=== PATIENT | male | born 1945 | race Caucasian/White ===

== ENCOUNTER 2022-02-25 10:00 | Outpatient (CLI) | payer MEDICARE, OTHER, SELFPAY | END 2022-02-25 10:01 | disposition home or self-care (01) | LOC: SLEEP 02-27 09:51 | PROVIDERS: Family Provider Family Medicine; PCP Nurse Practitioner Family; Visit Provider Physician Assistant Medical | DX: G47.33 Obstructive sleep apnea (adult) (pediatric) (principal); Z78.9 Other specified health status | CPT/HCPCS: G0399 ==

== ENCOUNTER 2022-03-24 20:00 | Outpatient (CLI) | payer MEDICARE, OTHER, SELFPAY | END 2022-03-24 20:01 | disposition home or self-care (01) | LOC: SLEEP 03-25 05:17 | PROVIDERS: Family Provider Family Medicine; PCP Nurse Practitioner Family; Visit Provider Physician Assistant Medical | DX: G47.33 Obstructive sleep apnea (adult) (pediatric) (principal); Z78.9 Other specified health status | CPT/HCPCS: 95810 ==

== ENCOUNTER → 2023-05-04 14:19 | Outpatient (BNVA) | payer MEDICARE, OTHER, SELFPAY | PROVIDERS: Family Provider Family Medicine; PCP Nurse Practitioner Family; Visit Provider Dermatology | DX: L56.5 Disseminated superficial actinic porokeratosis (DSAP) (principal); L28.1 Prurigo nodularis; L82.1 Other seborrheic keratosis; L57.0 Actinic keratosis; L57.8 Other skin changes due to chronic exposure to nonionizing radiation | CPT/HCPCS: 17000; 99214 ==

== ENCOUNTER 2023-07-22 22:02 | Inpatient (IN) | payer MEDICARE, OTHER, SELFPAY ==
[2023-07-22 22:04] VITALS: BP 112/65; PULSE 88; RESP 18; TEMP 36.4; O2SAT 92
--- NOTE | 2023-07-22 22:11 | USR_ITS ---
PROCEDURE INFORMATION: Exam: US Duplex Left Lower Extremity Veins, Limited Exam date and time: 07/22/2023 10:37 PM Age: 77 years old Clinical indication: Edema, localized; Lower extremity, left; Prior surgery; Surgery date: 6+ months; Surgery type: Left total knee replacement in remote past. ; Additional info: Erythema/swelling TECHNIQUE: Imaging protocol: Real-time duplex ultrasound of the left extremity with 2-D [place] scale, color Doppler flow and spectral waveform analysis including responses to compression and other maneuvers (when performed) with image documentation. Limited exam focused on the left lower extremity veins. COMPARISON: CR (LOW EXM, ) 07/22/2023 10:25 PM FINDINGS: Left deep veins: Unremarkable. The common femoral, femoral, proximal profunda femoral and popliteal veins are patent without thrombus. Normal Doppler waveforms. Normal compressibility and/or augmentation response. Superficial veins: Unremarkable. Saphenofemoral junction is patent without thrombus. Soft tissues: Unremarkable. US/CV venous duplex [facility] [id number] IMPRESSION: No evidence of deep vein thrombosis in the left lower extremity.
--- NOTE | 2023-07-22 22:11 | XRR_ITS ---
PROCEDURE INFORMATION: Exam: XR Chest Exam date and time: 07/22/2023 10:25 PM Age: 77 years old Clinical indication: Cough TECHNIQUE: Imaging protocol: Radiologic exam of the chest. Views: 1 view. COMPARISON: No relevant prior studies available. FINDINGS: Lungs: Unremarkable. No consolidation. Pleural spaces: Unremarkable. No pleural effusion. No pneumothorax. Heart/Mediastinum: Unremarkable. No cardiomegaly. Bones/joints: Unremarkable. XR/XR chest 1V portable [id number] IMPRESSION: No acute findings.
--- NOTE | 2023-07-22 22:18 | W.ED.EXTPRO ---
HPI - Extremity Problem General: Chief complaint: Extremity Problem,Nontraumatic Stated complaint: pain in leg Time Seen by Provider: 07/22/23 22:11 History of Present Illness: 77-year-old male presents emergency department via EMS personnel. He states that approximately 1400 today started having significant left knee pain and swelling. He states the left lower extremity has continued to become more red and swollen throughout the day. He states he has had cellulitis in the past he does have history of having a knee replacement x 3 to the left knee. He currently rates his pain as a throbbing aching type pain that is a 7 out of 10. He is able to stand and pivot but states his pain in his knee becomes much worse. He denies fevers chills or night sweats. He denies numbness or tingling to the extremity. Review of Systems General: Reports: 10 or more systems reviewed and unremarkable except in HPI and below Musc: Reports: extremity pain, extremity swelling and joint pain Skin/Breast: Reports: erythema [facility] PFSH: Medical History Hyperlipidemia Hypertension Social History Smoking and tobacco/nicotine status: former use of tobacco/nicotine Physical Exam Narrative: EXAM NARRATIVE: Constitutional: the patient appears well nourished and of normal development. Vital signs as documented. No acute distress at present. Alert and oriented-to person, place, time and situation. Head, eyes, ears, nose, mouth, throat: Normocephalic, atraumatic. Pupils-equal, round, reactive to light. No scleral icterus. Normal-appearing external ears. Normal appearing nasal turbinates, no drainage. No obvious oral lesions, posterior oropharynx without erythema or exudates. Neck: Supple, trachea is midline, no lymphadenopathy, no jugular venous distension, thyromegaly, or carotid bruits. Carotid upstrokes are brisk bilaterally. Lungs: clear to auscultation to all lung watts. Symmetrical rise and fall of chest, no obvious signs of increased work of breathing at present. Cardiac: Regular rate and rhythm, positive S1, S2. No murmurs, rubs or gallops that I can appreciate Abdomen: Soft, non-tender to palpation, normal active bowel sounds to all quadrants. No palpable masses, no organomegaly and abdominal bruits. Extremities: 2+ pulses in the upper extremities that are equal bilaterally, 2+ pulses in the lower extremities that are equal bilaterally. 1+ nonpitting edema to the left lower leg. The left knee is moderately swollen and tender to palpation to the medial lateral aspect.. Moves all extremities well, sensation to all extremities are noted. Skin: Warm, dry, intact. Erythema to the entire left lower leg Course Vital Signs: Vital signs: Vital Signs Temperature 97.9 F 07/23/23 02:29 Pulse Rate 57 L 07/23/23 02:29 Respiratory Rate 20 H 07/23/23 02:29 Blood Pressure 139/67 07/23/23 02:29 Pulse Oximetry 94 07/23/23 02:29 Oxygen Delivery Me thod Room Air 07/23/23 02:29 MDM - Extremity (Nontraumatic) Medical Decision Making Physical exam completed and documented, I will obtain CBC CMP ESR and CRP as well as a chest x-ray and blood cultures to evaluate this patient. He states he is also had a significant cough so we will obtain influenza and COVID screening. I will obtain a radiographic examination as well as an ultrasound of the left lower extremity. Medical Records I reviewed the patient's medical records. Lab Data I reviewed the patient's lab results. 07/22/23 23:10 07/22/23 23:40 Radiology Impressions Chest X-Ray 07/22/23 22:11 IMPRESSION: No acute findings. Venous Duplex 07/22/23 22:11 IMPRESSION: No evidence of deep vein thrombosis in the left lower extremity. Knee X-Ray 07/22/23 22:22 IMPRESSION: 1. Semi constrained total left knee arthroplasty without evidence of hardware failure or loosening. 2. Trace joint effusion. 3. No acute fracture. Laboratory Results WBC 19.93 10^3/uL (3.29-11.43) H 07/22/23 23:10 RBC 4.07 10^6/uL (3.85-5.65) 07/22/23 23:10 Hgb 13.10 g/dL (11.27-16.99) 07/22/23 23:10 Hct 39.5 % (37-53) 07/22/23 23:10 MCV 97.1 fl (82-101) 07/22/23 23:10 MCH 32.2 pg (27-33) 07/22/23 23:10 MCHC 33.2 g/dL (30-55) 07/22/23 23:10 RDW 14.5 % (12.1-15.1) 07/22/23 23:10 Plt Count 187 10^3/cmm (157-399) 07/22/23 23:10 MPV 12.4 fL (7.4-10.4) H 07/22/23 23:10 Neut % (Auto) 85.5 % 07/22/23 23:10 Lymph % (Auto) 4.5 % 07/22/23 23:10 [place] % (Auto) 4.0 % 07/22/23 23:10 Eos % (Auto) 0.0 % 07/22/23 23:10 Baso % (Auto) 0.3 % 07/22/23 23:10 Neut # (Auto) 17.06 10^3/uL (1.8-7.7) H 07/22/23 23:10 Lymph # (Auto) 0.9 10^3/uL (0.8-4.8) 07/22/23 23:10 [place] # (Auto) 0.8 10^3/uL (0.2-0.9) 07/22/23 23:10 Eos # (Auto) 0.0 10^3/uL (0.0-0.8) 07/22/23 23:10 Baso # (Auto) 0.1 10^3/uL (0.0-0.1) 07/22/23 23:10 Nucleated RBC % (auto) 0 % 07/22/23 23:10 Nucleated RBCs # 0.0 /100WBC 07/22/23 23:10 ESR 68 mm/hr (0-10) H 07/22/23 23:10 Sodium 133 mmol/L (136-145) L 07/22/23 23:40 Potassium 3.8 mmol/L (3.5-5.1) 07/22/23 23:40 Chloride 102 mmol/L (98-107) 07/22/23 23:40 Carbon Dioxide 21 mmol/L (22-29) L 07/22/23 23:40 Anion Gap 13.8 (5-19) 07/22/23 23:40 BUN 33 mg/dL (8-23) H 07/22/23 23:40 Creatinine 1.6 mg/dL (0.7-1.2) H 07/22/23 23:40 GFR Calculation Not Reportable 07/22/23 23:40 Glucose 164 mg/dL (65-115) H 07/22/23 23:40 Estimat Average Glucose 120 07/22/23 23:10 Hemoglobin A1c 5.8 % (4.0-6.0) 07/22/23 23:10 Calculated Osmolality 287 mOsm/kg (285-295) 07/22/23 23:40 Lactic Acid 1.5 mmol/L (0.5-2.2) 07/22/23 23:40 Calcium 8.6 mg/dL (8.5-10.5) 07/22/23 23:40 Total Bilirubin 1.2 mg/dL (0.15-1.2) 07/22/23 23:40 AST 110 U/L (0-40) H 07/22/23 23:40 ALT 105 U/L (0-41) H 07/22/23 23:40 Alkaline Phosphatase 293 U/L (40-130) H 07/22/23 23:40 C-Reactive Protein 168.5 mg/L (0.0-4.9) H 07/22/23 23:40 Total Protein 6.1 g/dL (6.6-8.7) L 07/22/23 23:40 Albumin 2.5 g/dL (3.5-5.2) L 07/22/23 23:40 Globulin 3.6 g/dL (1.3-4.6) 07/22/23 23:40 Procalcitonin 1.04 ng/mL (0-0.5) H 07/22/23 23:40 Influenza Type A Ag negative (Negative) 07/22/23 22:45 Influenza Type B Ag negative (Negative) 07/22/23 22:45 SARS-CoV-2 Ag (Rapid) negative (Negative) 07/22/23 22:45 All radiology interpretation(s) finalized by discharge Discharge Plan Discharge Patient Disposition: Admitted As Inpatient Admit Provider: Gillian Dangelo Clinical Impression: Cellulitis of left leg, Elevated liver transaminase level Condition: Stable Coding Level of Care Code 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
--- NOTE | 2023-07-22 22:22 | XRR_ITS ---
PROCEDURE INFORMATION: Exam: XR Left Knee Exam date and time: 07/22/2023 10:25 PM Age: 77 years old Clinical indication: Pain; Knee; Left; Additional info: Pain and swelling TECHNIQUE: Imaging protocol: Radiologic exam of the left knee. Views: 3 views. COMPARISON: No relevant prior studies available. FINDINGS: Bones/joints: Semi constrained total left knee arthroplasty without evidence of hardware failure or loosening. Trace joint effusion. No acute fracture. Soft tissues: Normal. XR/XR knee LT 3V* [id number] IMPRESSION: 1. Semi constrained total left knee arthroplasty without evidence of hardware failure or loosening. 2. Trace joint effusion. 3. No acute fracture.
[2023-07-22 23:15] LABS: SARS Covid-2 Antigen negative (Negative)
[2023-07-22 23:16] LABS: Influenza A by IFA negative (Negative); Influenza B by IFA negative (Negative)
[2023-07-22 23:45] LABS: Erythrocyte Sedimentation Rate 68 mm/hr (0-10)
[2023-07-23] VITALS (11 sets, daily range): BP systolic 101–149; BP diastolic 46–72; PULSE 52–70; RESP 16–20; TEMP 36.6–37.1; O2SAT 91–97; BMI 37.7
[2023-07-23 00:01] LABS: Basophils # 0.1 10^3/uL (0.0-0.1); Basophils % 0.3 %; Hematocrit 39.5 % (37-53); Lymphocytes # 0.9 10^3/uL (0.8-4.8); Lymphocytes % 4.5 %; Mean Corpuscular HGB Conc 33.2 g/dL (30-55); Mean Corpuscular Hemoglobin 32.2 pg (27-33); Mean Corpuscular Volume 97.1 fl (82-101); Mean Platelet Volume 12.4 fL (7.4-10.4); Monocytes # 0.8 10^3/uL (0.2-0.9); Neutrophils # 17.06 10^3/uL (1.8-7.7); Neutrophils % 85.5 %; Nucleated Red Blood Cells % 0 %; Platelet Count 187 10^3/cmm (157-399); Red Blood Count 4.07 10^6/uL (3.85-5.65); Red Cell Distribution Width 14.5 % (12.1-15.1); White Blood Count 19.93 10^3/uL (3.29-11.43)
[2023-07-23 00:04] LABS: Alanine Aminotransferase 105 U/L (0-41); Albumin Level 2.5 g/dL (3.5-5.2); Alkaline Phosphatase 293 U/L (40-130); Anion Gap 13.8 (5-19); Aspartate Amino Transferase 110 U/L (0-40); Blood Urea Nitrogen 33 mg/dL (8-23); C Reactive Protein 168.5 mg/L (0.0-4.9); Calcium 8.6 mg/dL (8.5-10.5); Carbon Dioxide 21 mmol/L (22-29); Chloride 102 mmol/L (98-107); Globulin 3.6 g/dL (1.3-4.6); Glucose 164 mg/dL (65-115); Lactic Sepsis W/Reflex 1.5 mmol/L (0.5-2.2); Osmolality Calculated 287 mOsm/kg (285-295); Potassium 3.8 mmol/L (3.5-5.1); Sodium 133 mmol/L (136-145); Total Bilirubin 1.2 mg/dL (0.15-1.2); Total Protein 6.1 g/dL (6.6-8.7)
[2023-07-23 00:11] LABS: Procalcitonin 1.04 ng/mL (0-0.5)
[2023-07-23] MEDS: clindamycin 600 MG/50 ML PREMIX 100 MG IV (00:38)
[2023-07-23 01:44] LABS: Estmated Average Glucose 120; Hemoglobin A1C 5.8 % (4.0-6.0)
[2023-07-23] MEDS: cefTRIAXone 1,000 MG in sodium chloride 0.9% (plus) 50 ML 100 MG IV (01:57)
--- NOTE | 2023-07-23 02:11 | PC.NURSE ---
REPORT CALLED TO DORIS THOMPSON ON MS. ALL QUESTIONS AND CONCERNS ADDRESSED AT TIME OF REPORT.
[2023-07-23] MEDS: vancomycin 2,000 MG/400 ML PIGGYBACK 200 MG IV (02:39)
--- NOTE | 2023-07-23 02:45 | PC.NURSE ---
Patient arrived to floor at 0230 and was transferred over to [facility] bed. Patient was oriented to room and call light.
--- NOTE | 2023-07-23 05:37 | XRR_ITS ---
PROCEDURE INFORMATION: Exam: XR Chest Exam date and time: 07/23/2023 5:51 AM Age: 77 years old Clinical indication: Other: Evaluate for pneumonia TECHNIQUE: Imaging protocol: Radiologic exam of the chest. Views: 1 view. COMPARISON: CR (CHEST, ) 07/22/2023 10:25 PM FINDINGS: Lungs: Unremarkable. No consolidation. Pleural spaces: Unremarkable. No pleural effusion. No pneumothorax. Heart/Mediastinum: Unremarkable. No cardiomegaly. Bones/joints: Unremarkable. XR/XR chest 1V portable [id number] IMPRESSION: No acute findings.
--- NOTE | 2023-07-23 05:40 | PM.HP ---
Providers/Chief Complaint Admitting Physician: Gillian Dangelo MD Primary Care Provider: AYSHA Rodriguez Chief Complaint: pain in leg History of Present Illness Balta Forrest is a 77 year old male with a past medical history of dyslipidemia who presented to the hospital today with 1 day of left leg swelling erythema warmth and tenderness. Patient states he has been feeling poorly for the past week with URI type symptoms and a mild cough. He has Been fatigued and spent most of the time in bed. Yesterday he started to notice cominghis left leg developing cellulitis. Patient has a past medical history of recurrent episodes of cellulitis. He estimates he has had 6-7 episodes of cellulitis in his lifetime only involving the left leg. He has had previous surgeries on this leg by way of multiple arthroscopies and left total knee replacement which needed to be revised. Patient states that the revision was related to well-fitting hardware, he has never had known infected knee joint in the past. Prior to the current episode his last episode of cellulitis was 1-1/2 years ago. No reported trauma. No history of animal bites or scratches. Review of Systems General: Reports: 10 or more systems reviewed and unremarkable except in HPI and below Const: Denies: fever(s), chills or body aches Eyes: Denies: change in vision, blurry vision or photophobia ENMT: Reports: hoarseness; Denies: throat pain, enlarged tonsils, odynophagia or nasal congestion Card: Denies: chest pain, palpitations, irregular heart rhythm, edema, swelling of feet/ankles, lightheadedness, pre-syncope, dyspnea on exertion or orthopnea Resp: Denies: dyspnea, productive cough, non-productive cough, wheezing, stridor, pain on inspiration, change in phlegm color, hemoptysis or chest congestion GI: Denies: abdominal pain, nausea, vomiting, hematemesis, coffee ground emesis, dysphagia, heartburn, diarrhea, constipation, GI cramping, change in stool character, hematochezia or melena : Denies: flank pain, dysuria, urinary frequency, urinary urgency, urinary hesitancy or hematuria Musc: Denies: neck pain, back pain, extremity pain, joint swelling, joint warmth or deformity Neuro: Denies: headache(s), numbness in extremities, weakness in extremities, sensory changes, difficulty walking, frequent falls, dizziness, vertigo, behavioral changes, Slurred speech present or seizure-like activity Psych: Denies: anxiety, depression, suicidal ideation or homicidal ideation Endo: Denies: polyuria, polydipsia, tired all the time, cold intolerance or hot flashes Elder/Lymph: Denies: easy bruising or easy bleeding Medications/Allergies Home Medications Medication Instructions Recorded Confirmed Last Taken Type amlodipine 5 mg tablet tab PO 05/01/22 05/01/22 Unknown History betamethasone dipropionate 0.05 % g topical 05/01/22 05/01/22 Unknown History topical cream celecoxib 200 mg capsule cap PO 05/01/22 05/01/22 Unknown History cetirizine 10 mg tablet tab PO 05/01/22 05/01/22 Unknown History doxycycline hyclate 100 mg tablet tab PO 05/01/22 05/01/22 Unknown History gabapentin 300 mg capsule cap PO 05/01/22 05/01/22 Unknown History rosuvastatin 20 mg tablet tab PO 05/01/22 05/01/22 Unknown History imiquimod 5 % topical cream packet 1 applic topical ONCE #24 ea 05/09/22 05/09/22 Unknown Rx Allergies Allergy/AdvReac Type Severity Reaction Status Date / Time No Known Drug Allergies Allergy Unknown Verified 07/22/23 22:06 PFSH Acute PFSH: Medical History Hyperlipidemia Hypertension Social History Smoking and tobacco/nicotine status: former use of tobacco/nicotine Vitals/I&O/Wt Last Vital Signs Temp 98.4 F 07/23/23 04:00 Pulse 52 L 07/23/23 04:00 Resp 18 07/23/23 04:00 BP 121/63 07/23/23 04:00 Pulse Ox 92 07/23/23 04:00 O2 Del Method Room Air 07/23/23 04:00 07/22/23 07/22/23 07/23/23 14:59 22:59 06:59 Intake Total 500 / 500 Balance 500 / 500 Weight last 48 hrs Weight 131.117 kg Weight 126.155 kg Weight 127.006 kg Physical Exam Narrative: General: No acute distress, AO x3 HEENT: PERRLA, pupils bilaterally equal and reactive, pallors not present Chest: Normal vesicular breath sounds, no added sounds, equal good air entry bilaterally CVS: S1-S2 regular, no murmurs, no tachycardia, no gallops, no rubs Abdomen: Soft, nontender, no organomegaly, bowel sounds present Neuro: No focal deficits, no facial deformity, AO x3, power 5/5 in all limbs Extremities: LLE diffuse erythema, warmth and tenderness extending from thigh to ankle. Changes appear to be more prominent over the thigh. No gross joint swelling encountered at this present time. Range of motion is intact Data 07/22/23 23:10 07/22/23 23:40 Other Labs: Radiology Impressions Chest X-Ray 07/22/23 22:11 IMPRESSION: No acute findings. Venous Duplex 07/22/23 22:11 IMPRESSION: No evidence of deep vein thrombosis in the left lower extremity. Knee X-Ray 07/22/23 22:22 IMPRESSION: 1. Semi constrained total left knee arthroplasty without evidence of hardware failure or loosening. 2. Trace joint effusion. 3. No acute fracture. Laboratory Results WBC 19.93 10^3/uL (3.29-11.43) H 07/22/23 23:10 RBC 4.07 10^6/uL (3.85-5.65) 07/22/23 23:10 Hgb 13.10 g/dL (11.27-16.99) 07/22/23 23:10 Hct 39.5 % (37-53) 07/22/23 23:10 MCV 97.1 fl (82-101) 07/22/23 23:10 MCH 32.2 pg (27-33) 07/22/23 23:10 MCHC 33.2 g/dL (30-55) 07/22/23 23:10 RDW 14.5 % (12.1-15.1) 07/22/23 23:10 Plt Count 187 10^3/cmm (157-399) 07/22/23 23:10 MPV 12.4 fL (7.4-10.4) H 07/22/23 23:10 Neut % (Auto) 85.5 % 07/22/23 23:10 Lymph % (Auto) 4.5 % 07/22/23 23:10 [place] % (Auto) 4.0 % 07/22/23 23:10 Eos % (Auto) 0.0 % 07/22/23 23:10 Baso % (Auto) 0.3 % 07/22/23 23:10 Neut # (Auto) 17.06 10^3/uL (1.8-7.7) H 07/22/23 23:10 Lymph # (Auto) 0.9 10^3/uL (0.8-4.8) 07/22/23 23:10 [place] # (Auto) 0.8 10^3/uL (0.2-0.9) 07/22/23 23:10 Eos # (Auto) 0.0 10^3/uL (0.0-0.8) 07/22/23 23:10 Baso # (Auto) 0.1 10^3/uL (0.0-0.1) 07/22/23 23:10 Nucleated RBC % (auto) 0 % 07/22/23 23:10 Nucleated RBCs # 0.0 /100WBC 07/22/23 23:10 ESR 68 mm/hr (0-10) H 07/22/23 23:10 Sodium 133 mmol/L (136-145) L 07/22/23 23:40 Potassium 3.8 mmol/L (3.5-5.1) 07/22/23 23:40 Chloride 102 mmol/L (98-107) 07/22/23 23:40 Carbon Dioxide 21 mmol/L (22-29) L 07/22/23 23:40 Anion Gap 13.8 (5-19) 07/22/23 23:40 BUN 33 mg/dL (8-23) H 07/22/23 23:40 Creatinine 1.6 mg/dL (0.7-1.2) H 07/22/23 23:40 GFR Calculation Not Reportable 07/22/23 23:40 Glucose 164 mg/dL (65-115) H 07/22/23 23:40 Estimat Average Glucose 120 07/22/23 23:10 Hemoglobin A1c 5.8 % (4.0-6.0) 07/22/23 23:10 Calculated Osmolality 287 mOsm/kg (285-295) 07/22/23 23:40 Lactic Acid 1.5 mmol/L (0.5-2.2) 07/22/23 23:40 Calcium 8.6 mg/dL (8.5-10.5) 07/22/23 23:40 Total Bilirubin 1.2 mg/dL (0.15-1.2) 07/22/23 23:40 AST 110 U/L (0-40) H 07/22/23 23:40 ALT 105 U/L (0-41) H 07/22/23 23:40 Alkaline Phosphatase 293 U/L (40-130) H 07/22/23 23:40 C-Reactive Protein 168.5 mg/L (0.0-4.9) H 07/22/23 23:40 Total Protein 6.1 g/dL (6.6-8.7) L 07/22/23 23:40 Albumin 2.5 g/dL (3.5-5.2) L 07/22/23 23:40 Globulin 3.6 g/dL (1.3-4.6) 07/22/23 23:40 Procalcitonin 1.04 ng/mL (0-0.5) H 07/22/23 23:40 Influenza Type A Ag negative (Negative) 07/22/23 22:45 Influenza Type B Ag negative (Negative) 07/22/23 22:45 SARS-CoV-2 Ag (Rapid) negative (Negative) 07/22/23 22:45 A&P Assessment and plan (1) Cellulitis of left [age]-year-old male with a past medical history of recurrent episode of cellulitis presenting today with 1 day of swelling warmth erythema and tenderness of the left leg concerning for cellulitis. No clear precipitant or reported trauma to the leg. Start empiric antibiotic treatment with ceftriaxone 1 g IV every 24 hours and vancomycin IV with target trough of 10-15. Blood cultures taken prior to starting antibiotic's Closely monitor for improvement. Of note patient has an underlying TKA on the same leg. Currently the joint itself does not appear to be swollen or painful on exam. If no significant clinical improvement in the first 24 to 48 hours of starting antibiotic therapy, would potentially need to consider underlying joint infection additionally. For now suspicion appears to be low. Additionally reported URI symptoms over the past week. Patient has a cough with minimal expectoration and scattered wheezing. Add albuterol inhalation every 6 hours as needed Check COVID and influenza antigen Check chest x-ray Lower extremity Doppler negative for DVT DVT prophylaxis: Lovenox Full code Attestations Medical Necessity Statement*: Greater than 2 midnight admission is anticipated Coding Level of Care Code Acute Code for Chg Fwd Moderate MDM includes number and complexity of problems actively addressed during encounter, amount and/or complexity of data reviewed/ordered and described risk of complication, morbidity or mortality of management as documented Diagnoses Cellulitis of left leg L03.116
--- NOTE | 2023-07-23 07:16 | PC.PHAR ---
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 = 13.5 mcg/ml t1/2 17 hrs Hrs until 20 mcg/ml 8.0 hrs Hrs until 15 mcg/ml 15.3 hours Hrs until 10 mcg/ml 25.5 hours Dose Tau (Freq) Levels expected Standard 1999 24 Cmax 42.2 Targets 20.20 26.2 Cpeak 40.6 25 to 40 mg/kg hours Cmin 17.6 10 to 20
[2023-07-23 09:47] LABS: Basophils % 0.2 %; Hematocrit 37.3 % (37-53); Lymphocytes # 0.6 10^3/uL (0.8-4.8); Lymphocytes % 3.5 %; Mean Corpuscular HGB Conc 33.5 g/dL (30-55); Mean Corpuscular Hemoglobin 32.1 pg (27-33); Mean Corpuscular Volume 95.9 fl (82-101); Mean Platelet Volume 11.2 fL (7.4-10.4); Monocytes # 0.6 10^3/uL (0.2-0.9); Monocytes % 3.5 %; Neutrophils # 15.41 10^3/uL (1.8-7.7); Nucleated Red Blood Cells % 0 %; Platelet Count 157 10^3/cmm (157-399); Red Blood Count 3.89 10^6/uL (3.85-5.65); Red Cell Distribution Width 14.4 % (12.1-15.1)
[2023-07-23] MEDS: pantoprazole DR 40 mg Tablet PO (09:47)
[2023-07-23] MEDS: enoxaparin 40 mg/0.4 mL Syringe SUBCUT (09:47)
[2023-07-23] MEDS: HYDROcodone-acetaminophen 5-325 mg Tablet 1 TAB PO ×3 (09:47→23:41)
[2023-07-23] MEDS: sodium chloride 0.9% 1,000 ML 100 ML IV ×2 (09:48→20:13)
--- NOTE | 2023-07-23 09:55 | W.PM.EVENTAC ---
Event Note Event Note: Patient seen, history and physical reviewed. Laboratory ordered. Fluids initiated. Pain medication initiated for leg. Will continue to follow closely for improvement. Hold patient's anti-inflammatory secondary to acute kidney injury. Also has evidence of transaminitis. If does not improve, consider hepatitis panel.
[2023-07-23 10:00] LABS: Slide Review Slide Review Perform
[2023-07-23 10:05] LABS: Alanine Aminotransferase 102 U/L (0-41); Albumin Level 2.7 g/dL (3.5-5.2); Alkaline Phosphatase 276 U/L (40-130); Anion Gap 15.9 (5-19); Aspartate Amino Transferase 83 U/L (0-40); Blood Urea Nitrogen 30 mg/dL (8-23); Calcium 8.4 mg/dL (8.5-10.5); Carbon Dioxide 20 mmol/L (22-29); Chloride 100 mmol/L (98-107); Globulin 3.4 g/dL (1.3-4.6); Glucose 224 mg/dL (65-115); Osmolality Calculated 287 mOsm/kg (285-295); Potassium 3.9 mmol/L (3.5-5.1); Sodium 132 mmol/L (136-145); Total Bilirubin 1.8 mg/dL (0.15-1.2); Total Protein 6.1 g/dL (6.6-8.7)
--- NOTE | 2023-07-23 10:18 | USR_ITS ---
PROCEDURE INFORMATION: Exam: US Abdomen, Limited; Right Upper Quadrant Exam date and time: 07/23/2023 5:12 PM Age: 77 years old Clinical indication: Abnormal findings; Abnormal lab test; Abnormal function test of other organs/systems; Additional info: Elevated lft's, PT put on npo at 10:30 TECHNIQUE: Imaging protocol: Real time ultrasound of the abdomen with image documentation. Limited exam focused on the right upper quadrant. COMPARISON: No relevant prior studies available. FINDINGS: Liver: Unremarkable. Gallbladder: Cholelithiasis without gallbladder wall thickening or pericholecystic fluid. Negative sonographic Christianson's sign, as per the digital forensics investigator. Biliary ducts: Normal. No stones. No dilation. Pancreas: Suboptimally visualized. Right kidney: No mass. No definite stones. No hydronephrosis. US/US gall bladder [id number] IMPRESSION: Cholelithiasis without sonographic evidence of acute cholecystitis.
--- NOTE | 2023-07-23 10:30 | PC.CHAP ---
Pastoral Care Encounter/Spiritual Assessment Type of Contact [] Declined cheese packer visit [] Patient/Family/Request visit [] Outpatient visit [] Follow-up visit [] Physician referral [] Code/Alert [x] Routine visit [] Staff referral [] Actively dying [] Patient sleeping [] Family support [] [] Out of room [] Palliative care [] [x] Receiving care in room [] Pre-surgical visit [] Trauma [] Long length of stay [] ICU visit [] Other: Relational/Emotional Strength [x] Patient feels connected with others/family/visitors/staff [] Distress [] Loneliness/isolation [] Abandonment Spirituality of Patient [] Person of Latrice [] Attends Taoist of their Latrice [] Believes in Prayer [] Reads Bible or Methodist materials [] There are Spiritual issues to be addressed Clinical Trials Manager Interventions [] Prayer [] Active listening [] Non-anxious presence [] Spiritual/emotional support [] Crisis/trauma care [] Spiritual counseling [] Bereavement support [] Provided bereavement packet [] Provided Bible/devotional materials [] Provided toy/stuffed animal, coloring book to patient or family member [] Provided Communion [] Anointing/[place] [] Salvation [] Completed spiritual assessment [] Other: Impact on Illness or Injury [] Angry [] Fearful [] Anxious [] Often cries [] Exhaustion [] Unable to work [] Unable to attend buddhist [] Unable to walk/stand [] Unable to read [] Unable to drive [] Unable to eat/drink [] Unable to sleep [] Unable to be with family [] Patient intubated [] Other: Summary feels go well be going home Time spent with patient 5 mins
[2023-07-23 10:38] LABS: Lipase 37 U/L (13-60)
[2023-07-23 10:53] LABS: Hepatitis A Antibody IgM Non-Reactive (Nonreactive); Hepatitis B Core IgM Non-Reactive (Nonreactive); Hepatitis B Surface Antigen Non-Reactive (Nonreactive); Hepatitis C Virus Antibody Non-Reactive (Nonreactive)
[2023-07-23 11:12] LABS: SARS Covid-2 Antigen negative (Negative)
[2023-07-23] MEDS: atorvastatin 40 mg Tablet 80 MG PO (20:12)
[2023-07-23] MEDS: gabapentin 300 mg Capsule PO (20:13)
[2023-07-24] MEDS: cefTRIAXone 1,000 MG in sodium chloride 0.9% (plus) 50 ML 100 MG IV (01:04)
[2023-07-24 03:35] VITALS: BP 134/61; PULSE 68; RESP 18; TEMP 36.7; O2SAT 91
[2023-07-24] MEDS: vancomycin 2,000 MG/400 ML PIGGYBACK 200 MG IV (03:35)
[2023-07-24] MEDS: HYDROcodone-acetaminophen 5-325 mg Tablet 1 TAB PO ×3 (03:41→16:31)
[2023-07-24] MEDS: sodium chloride 0.9% 1,000 ML 100 ML IV ×3 (05:03→20:39)
[2023-07-24] MEDS: allopurinol 100 mg Tablet PO (05:03)
[2023-07-24] MEDS: amlodipine 5 mg Tablet PO (05:03)
[2023-07-24 05:23] LABS: Basophils # 0.1 10^3/uL (0.0-0.1); Basophils % 0.3 %; Eosinophils % 0.1 %; Hematocrit 38.4 % (37-53); Lymphocytes # 1.1 10^3/uL (0.8-4.8); Lymphocytes % 6.5 %; Mean Corpuscular HGB Conc 32.8 g/dL (30-55); Mean Corpuscular Hemoglobin 32.1 pg (27-33); Mean Platelet Volume 12.8 fL (7.4-10.4); Monocytes # 0.7 10^3/uL (0.2-0.9); Monocytes % 3.8 %; Neutrophils # 14.56 10^3/uL (1.8-7.7); Neutrophils % 84.6 %; Nucleated Red Blood Cells % 0 %; Platelet Count 176 10^3/cmm (157-399); Red Blood Count 3.92 10^6/uL (3.85-5.65); Red Cell Distribution Width 14.6 % (12.1-15.1); White Blood Count 17.21 10^3/uL (3.29-11.43)
[2023-07-24 05:52] LABS: Alanine Aminotransferase 80 U/L (0-41); Albumin Level 2.8 g/dL (3.5-5.2); Alkaline Phosphatase 284 U/L (40-130); Aspartate Amino Transferase 60 U/L (0-40); Blood Urea Nitrogen 26 mg/dL (8-23); Calcium 8.2 mg/dL (8.5-10.5); Carbon Dioxide 21 mmol/L (22-29); Chloride 103 mmol/L (98-107); Globulin 2.7 g/dL (1.3-4.6); Glucose 128 mg/dL (65-115); Osmolality Calculated 288 mOsm/kg (285-295); Sodium 136 mmol/L (136-145); Total Bilirubin 2.4 mg/dL (0.15-1.2); Total Protein 5.5 g/dL (6.6-8.7)
[2023-07-24] MEDS: pantoprazole DR 40 mg Tablet PO (08:19)
[2023-07-24] MEDS: cetirizine 10 mg Tablet PO (08:19)
[2023-07-24] MEDS: enoxaparin 40 mg/0.4 mL Syringe SUBCUT (08:19)
[2023-07-24 08:33] VITALS: BP 135/55; PULSE 56; RESP 17; TEMP 36.7; O2SAT 91
--- NOTE | 2023-07-24 08:34 | P.PN_ITS ---
Subjective 2 Subjective: Balta reports he is doing okay. He does not feel like eating yet. He still has a fair amount of sputum, and keeps spitting. He reports he had a viral illness about a week to 10 days ago that was significant. He denies any abdominal pain, right upper quadrant pain, or prior history of such. Medications: Reviewed: Yes Vitals/I&O/Wt Last Vital Signs Temp 98.1 F 07/24/23 08:33 Pulse 56 L 07/24/23 08:33 Resp 17 07/24/23 08:33 BP 135/55 07/24/23 08:33 Pulse Ox 91 07/24/23 08:33 O2 Del Method Room Air 07/24/23 08:33 07/23/23 07/24/23 07/24/23 22:59 06:59 14:59 Intake Total 1320 / 1740 1333.333 / 3073.333 Output Total 475 / 475 Balance 1320 / 1740 858.333 / 2598.333 Weight last 48 hrs Weight 131.797 kg Weight 131.117 kg Weight 126.155 kg Weight 127.006 kg Physical Exam 2 Narrative: General exam no distress, alert and conversive Neck is supple Cardiovascular regular rate and rhythm without murmur Lungs clear Abdomen is soft nontender with positive bowel sounds. Extremities no cyanosis clubbing. Left lower extremity with some erythema and edema. This may be slightly improved from yesterday. Data 07/24/23 04:24 07/24/23 04:24 A&P Assessment and plan (1) Cellulitis of left leg: Extensive cellulitis left leg Venous duplex negative Currently on Rocephin and vancomycin. Continue this treatment currently MRSA PCR pending (2) Elevated liver transaminase level: Liver tests elevated Transaminases are coming down the bilirubin slightly higher today No evidence of obstruction on gallbladder ultrasound and patient without symptomatology. However, gallstones are noted. CT abdomen and pelvis with contrast would be indicated, but would be safer to do as renal function improves. As patient is asymptomatic, and improving we will defer this to see if creatinine improves further. Influenza testing, rapid COVID-negative (3) Acute kidney injury: Patient with apparent acute kidney injury on presentation BMP daily Minimally improved today Bladder scan Hold any anti-inflammatories. Note that he was on Celebrex on admission If does not continue to improve consider imaging but this would be done anyway with a CT abdomen and pelvis in the next 1 to 2 days. Plan Other medical problems as outlined in past medical history Full code Lovenox for DVT prophylaxis Attestations 2 Medical Necessity Statement*: Needs continued hospital stay for close follow-up of acute kidney injury requiring daily lab, cellulitis still requiring IV antibiotics including vancomycin which is a potentially toxic medication which levels are needed. Diagnoses Cellulitis of left leg L03.116 Elevated liver transaminase level R74.01 Acute kidney injury N17.9 Time Spent (min) 28
[2023-07-24 08:56] VITALS: PULSE 76; RESP 17; O2SAT 92
--- NOTE | 2023-07-24 09:23 | PC.CHAP ---
Pastoral Care Encounter/Spiritual Assessment Type of Contact [] Declined director of category management visit [] Patient/Family/Request visit [] Outpatient visit [] Follow-up visit [] Physician referral [] Code/Alert [] Routine visit [] Staff referral [] Actively dying [x] Patient sleeping [] Family support [] [] Out of room [] Palliative care [] [] Receiving care in room [] Pre-surgical visit [] Trauma [] Long length of stay [] ICU visit [] Other: Relational/Emotional Strength [] Patient feels connected with others/family/visitors/staff [] Distress [] Loneliness/isolation [] Abandonment Spirituality of Patient [] Person of Latrice [] Attends Temple of their Latrice [] Believes in Prayer [] Reads Bible or Bahai materials [] There are Spiritual issues to be addressed Alumnae Secretary Interventions [] Prayer [] Active listening [] Non-anxious presence [] Spiritual/emotional support [] Crisis/trauma care [] Spiritual counseling [] Bereavement support [] Provided bereavement packet [] Provided Bible/devotional materials [] Provided toy/stuffed animal, coloring book to patient or family member [] Provided Communion [] Anointing/[place] [] Salvation [] Completed spiritual assessment [] Other: Impact on Illness or Injury [] Angry [] Fearful [] Anxious [] Often cries [] Exhaustion [] Unable to work [] Unable to attend jain [] Unable to walk/stand [] Unable to read [] Unable to drive [] Unable to eat/drink [] Unable to sleep [] Unable to be with family [] Patient intubated [] Other: Summary Time spent with patient
[2023-07-24 10:18] LABS: INR 1.32 (0.8-1.2)
--- NOTE | 2023-07-24 10:53 | PC.SOCIAL ---
Pg 2 IMM Explained to pt Pg 2 IMM. No questions voiced. Provided pt a copy. Initialed, dated, & timed a copy & placed in chart.
[2023-07-24 12:42] VITALS: BP 141/64; PULSE 69; RESP 18; TEMP 36.6; O2SAT 91
[2023-07-24 16:14] VITALS: BP 94/57; PULSE 65; RESP 18; TEMP 36.9; O2SAT 91
[2023-07-24 20:00] VITALS: BP 143/66; PULSE 71; RESP 18; TEMP 36.9; O2SAT 91
[2023-07-24] MEDS: atorvastatin 40 mg Tablet 80 MG PO (20:41)
[2023-07-24] MEDS: gabapentin 300 mg Capsule PO (20:41)
[2023-07-25] VITALS (8 sets, daily range): BP systolic 128–170; BP diastolic 62–73; PULSE 64–94; RESP 16–20; TEMP 36.8–37.9; O2SAT 86–94; BMI 37.8
[2023-07-25] MEDS: cefTRIAXone 1,000 MG in sodium chloride 0.9% (plus) 50 ML 100 MG IV (00:17)
[2023-07-25] MEDS: HYDROcodone-acetaminophen 5-325 mg Tablet 1 TAB PO ×2 (00:33→21:57)
[2023-07-25] MEDS: vancomycin 2,000 MG/400 ML PIGGYBACK 200 MG IV (03:16)
[2023-07-25 05:33] LABS: Basophils # 0.1 10^3/uL (0.0-0.1); Basophils % 0.3 %; Eosinophils # 0.1 10^3/uL (0.0-0.8); Eosinophils % 0.3 %; Lymphocytes # 0.8 10^3/uL (0.8-4.8); Mean Corpuscular HGB Conc 32.1 g/dL (30-55); Mean Corpuscular Volume 99.7 fl (82-101); Mean Platelet Volume 12.2 fL (7.4-10.4); Monocytes # 0.9 10^3/uL (0.2-0.9); Monocytes % 4.1 %; Neutrophils # 18.12 10^3/uL (1.8-7.7); Neutrophils % 88.4 %; Nucleated Red Blood Cells % 0 %; Platelet Count 160 10^3/cmm (157-399); Red Blood Count 3.81 10^6/uL (3.85-5.65); Red Cell Distribution Width 14.7 % (12.1-15.1); White Blood Count 20.52 10^3/uL (3.29-11.43)
[2023-07-25 05:47] LABS: Alanine Aminotransferase 71 U/L (0-41); Albumin Level 2.6 g/dL (3.5-5.2); Alkaline Phosphatase 388 U/L (40-130); Aspartate Amino Transferase 69 U/L (0-40); Blood Urea Nitrogen 24 mg/dL (8-23); Calcium 8.3 mg/dL (8.5-10.5); Carbon Dioxide 22 mmol/L (22-29); Chloride 102 mmol/L (98-107); Globulin 3.5 g/dL (1.3-4.6); Glucose 146 mg/dL (65-115); Osmolality Calculated 289 mOsm/kg (285-295); Sodium 136 mmol/L (136-145); Total Bilirubin 1.9 mg/dL (0.15-1.2); Total Protein 6.1 g/dL (6.6-8.7)
[2023-07-25] MEDS: pantoprazole DR 40 mg Tablet PO (08:56)
[2023-07-25] MEDS: cetirizine 10 mg Tablet PO (08:56)
[2023-07-25] MEDS: allopurinol 100 mg Tablet PO (08:56)
[2023-07-25] MEDS: amlodipine 5 mg Tablet PO (08:56)
[2023-07-25] MEDS: enoxaparin 40 mg/0.4 mL Syringe SUBCUT (08:57)
--- NOTE | 2023-07-25 10:59 | P.PN_ITS ---
Subjective 2 Subjective: Patient had voided urine on the bed She still soiled I have asked nursing staff to get his room cleaned Patient noncompliant active complaints Showing signs of labored breathing with crackles and mild wheezing Currently on 4 L nasal cannula Requested chest x-ray Stop IV fluids Positive blood cultures No fever persistent leukocytosis Vitals/I&O/Wt Last Vital Signs Temp 98.6 F 07/25/23 08:00 Pulse 84 07/25/23 09:21 Resp 20 H 07/25/23 09:21 BP 170/64 07/25/23 08:00 Pulse Ox 86 L 07/25/23 09:21 O2 Del Method Room Air 07/25/23 09:21 O2 Flow Rate 3 07/25/23 08:00 07/24/23 07/25/23 07/25/23 22:59 06:59 14:59 Intake Total 1653.333 / 2813.333 1450 / 4263.333 Output Total 1000 / 1700 200 / 1900 Balance 653.333 / 6730.778 7306 / 2363.333 Weight last 48 hrs Weight 126.552 kg Weight 131.797 kg Physical Exam 2 Narrative: Clinical signs of improvement progression of hyperemia of cellulitis of left leg S1, S2 Crackles and wheezing Currently on 4 L No active chest pain Pleasant Unkept appearance Nonfocal neuroexam Data 07/25/23 04:28 07/25/23 04:28 Micro: Microbiology 07/23/23 23:10 Blood Culture - Preliminary Blood 07/23/23 23:13 Blood Culture - Preliminary Blood A&P Assessment and plan (1) Hypertension: (2) Elevated liver transaminase level: (3) Acute kidney injury: (4) Cellulitis of left leg: (5) Bacteremia: (6) New onset of congestive heart failure: Plan Bacteremia I will give him clindamycin toxin suppression medication Clinical signs of fluid overload Request BNP echo will give him Lasix Discontinue IV fluids Surgical signs of improvement of cellulitis of left leg Will emy the area as well Blood cultures noted Repeat blood cultures Patient stating that he lives alone at home he never used oxygen at home Currently requiring 3 to 4 L Will request chest x-ray Full code Change diet to cardiac DVT prophylaxis on board Optimize antihypertensive regimen, currently on amlodipine at lowest dose, considering creatinine 1.6 I would use metoprolol and hydralazine GENARO could be cardiorenal in nature anticipate improvement with diuresis Attestations 2 Medical Necessity Statement*: Continue medical management Diagnoses Hypertension I10 Elevated liver transaminase level R74.01 Acute kidney injury N17.9 Cellulitis of left leg L03.116 Bacteremia R78.81 New onset of congestive heart failure I50.9
--- NOTE | 2023-07-25 11:01 | XRR_ITS ---
PROCEDURE INFORMATION: Exam: XR Chest Exam date and time: 07/25/2023 12:52 PM Age: 77 years old Clinical indication: Shortness of breath; Additional info: Fluid overload, hypoxia TECHNIQUE: Imaging protocol: Radiologic exam of the chest. Views: 1 view. COMPARISON: CR (CHEST, ) 07/23/2023 5:51 AM FINDINGS: Lungs: Bilateral lower lung base increased peribronchiolar opacities which can be seen with pulmonary edema. Pleural spaces: Unremarkable. No pleural effusion. No pneumothorax. Heart/Mediastinum: Mild cardiomegaly. Bones/joints: Unremarkable. XR/XR chest 1V portable [id number] IMPRESSION: Mild cardiomegaly and mild pulmonary edema.
--- NOTE | 2023-07-25 11:03 | USCV_ITS ---
LonBalta Age: 77 Gender: M : 1945 Exam Date: 07/25/2023 18:18 Ordering Phys: Yadira Robbins MD Technologist: Adrian Marie [place] [facility] [place]: bacteremia BP: 128 / 72 HR: 74 Rhythm: Sinus Technical Quality: Technically difficult study MEASUREMENTS (Male / Female) Normal Values 2D ECHO LVOT Diameter 2.1 cm LA Diameter 4.6 cm Aorta at Sinotubular Diameter 3.2 cm IVC Diameter 2.0 cm M-MODE Aortic Annulus Diameter 3.2 cm LA Ao Ratio MM 1.6 MV E Point Septal Separation 0.6 cm DOPPLER TR Peak Velocity 194.3 cm/s TR Peak Gradient 15.1 mmHg TR Mean Velocity 151.8 cm/s TR Mean Gradient 10.2 mmHg TR Velocity Time Integral 46.8 cm Right Atrial Pressure 3.0 mmHg Pulmonary Artery Systolic Pressu 18.1 mmHg PV Peak Velocity 86.0 cm/s RV Acceleration Time 0.1 s RV Ejection Time 0.2 s RV AcT/ET 0.6 FINDINGS Left Ventricle Technically limited and difficult study with suboptimal views. Apical views are negative visualized. Ej LV systolic function likely preserved on parasternal and apical views. Right Ventricle Not well-visualized. Right Atrium Not well-visualized Left Atrium Grossly normal in size Mitral Valve Not well-visualized on the parasternal views no significant MR seen Aortic Valve Partially visualized on parasternal view. Tricuspid Valve Not well-visualized Pulmonic Valve Not well-visualized Pericardium No significant pericardial effusion in the parasternal views Aorta Grossly normal on parasternal views IVC Not seen CONCLUSIONS Technically limited and difficult study. Likely preserved LV function within study limitations. May benefit from contrast study or JOSE DAVID if clinically indicated Christian Hernandez MD (Electronically Signed) Final Date: 26 July 2023 10:08 S
[2023-07-25] MEDS: clindamycin 600 MG/50 ML PREMIX 100 MG IV ×2 (11:45→21:57)
[2023-07-25 12:04] LABS: Methicillin-Resist S.aureu PCR NOT DETECTED (NOT DETECTED)
[2023-07-25] MEDS: FUROsemide 10 mg/mL SDV 4mL 40 MG IVP (12:24)
[2023-07-25 12:59] LABS: NT Pro B Type Natriuretic Pept 1215 pg/mL (0-450)
--- NOTE | 2023-07-25 13:59 | CTR_ITS ---
PROCEDURE INFORMATION: Exam: CT Head Without Contrast Exam date and time: 07/25/2023 4:13 PM Age: 77 years old Clinical indication: Altered mental status/memory loss; Confusion or disorientation TECHNIQUE: Imaging protocol: Computed tomography of the head without contrast. Radiation optimization: All CT scans at this facility use at least one of these dose optimization techniques: automated exposure control; mA and/or kV adjustment per patient size (includes targeted exams where dose is matched to clinical indication); or iterative reconstruction. COMPARISON: No relevant prior studies available. RADIATION DOSE METRICS: Total DLP (mGy-cm): 964.88 FINDINGS: Brain: Normal. No hemorrhage. Unremarkable white matter. No mass effect. Cerebral ventricles: No ventriculomegaly. Paranasal sinuses: Visualized sinuses are unremarkable. No fluid levels. Mastoid air cells: Visualized mastoid air cells are well aerated. Bones/joints: Unremarkable. No acute fracture. Soft tissues: Unremarkable. CT/CT head wo con* [id number] IMPRESSION: No acute intracranial abnormality.
[2023-07-25] MEDS: hyDRALAzine 10 mg Tablet PO (21:57)
[2023-07-25] MEDS: atorvastatin 40 mg Tablet 80 MG PO (21:57)
[2023-07-25] MEDS: metoprolol tartrate 25 mg Tablet 12.5 MG PO (21:57)
[2023-07-25] MEDS: gabapentin 300 mg Capsule PO (21:57)
--- NOTE | 2023-07-25 22:01 | PC.NURSE ---
When asking patient where we are at, patient states we are on a ship. When asking patient what year it is, patient states 2093.
[2023-07-25 22:24] LABS: Glucose Point of Care 143 mg/dL (70-110)
[2023-07-25 23:35] LABS: Urine Appearance Hazy (CLEAR); Urine Color Yellow (Yellow); pH Urine 5 (5-7)
[2023-07-25 23:36] LABS: Add Urine Microscopic? YES; Bilirubin Urine Neg (Negative); Blood Urine 3+ (Negative); Glucose Urine UA Norm (Normal); Ketones Urine Negative (Negative); Leukocyte Esterase Urine Trace (Negative); Nitrate Urine Negative (Negative); Protein Urine 1+ (Negative); Urobilinogen Urine 1 mg/dL (Negative)
[2023-07-25 23:42] LABS: Amorphous Sediment Urine 1+ /hpf; Bacteria Urine 1+ /hpf; Mucus Urine 1+ /hpf; RBC Urine 25-40 /hpf (0-2); Squamous Epithelial Cell Urine 0-4 /hpf (0-5); WBC Urine 25-40 /hpf (0-5)
[2023-07-25 23:44] LABS: Add Urine Culture? Yes; Fine Granular Casts Urine 0-4 /lpf
[2023-07-25 23:50] LABS: Influenza A by IFA negative (Negative); Influenza B by IFA negative (Negative)
[2023-07-26] MEDS: cefTRIAXone 1,000 MG in sodium chloride 0.9% (plus) 50 ML 100 MG IV (00:18)
[2023-07-26 02:30] LABS: Basophils # 0.1 10^3/uL (0.0-0.1); Basophils % 0.3 %; Eosinophils % 0.1 %; Hematocrit 37.8 % (37-53); Lymphocytes # 0.7 10^3/uL (0.8-4.8); Lymphocytes % 3.1 %; Mean Corpuscular HGB Conc 33.1 g/dL (30-55); Mean Corpuscular Hemoglobin 31.9 pg (27-33); Mean Corpuscular Volume 96.4 fl (82-101); Mean Platelet Volume 11.3 fL (7.4-10.4); Monocytes % 4.5 %; Neutrophils # 18.76 10^3/uL (1.8-7.7); Neutrophils % 88.2 %; Nucleated Red Blood Cells % 0 %; Platelet Count 222 10^3/cmm (157-399); Red Blood Count 3.92 10^6/uL (3.85-5.65); Red Cell Distribution Width 14.8 % (12.1-15.1); White Blood Count 21.27 10^3/uL (3.29-11.43)
[2023-07-26 02:43] LABS: Blood Urea Nitrogen 23 mg/dL (8-23); Calcium 8.7 mg/dL (8.5-10.5); Carbon Dioxide 21 mmol/L (22-29); Chloride 101 mmol/L (98-107); Glucose 171 mg/dL (65-115); Osmolality Calculated 284 mOsm/kg (285-295); Sodium 133 mmol/L (136-145); Vancomycin Trough 22.5 ug/mL (10-15)
[2023-07-26 03:50] VITALS: BP 131/58; PULSE 67; RESP 17; TEMP 37.3; O2SAT 90
[2023-07-26] MEDS: clindamycin 600 MG/50 ML PREMIX 100 MG IV (05:02)
--- NOTE | 2023-07-26 05:02 | PC.NURSE ---
Jackson stat lock replaced x2. Patient pulling at jackson intermittently. Patient educated to not pull on jackson. Patient confused.
[2023-07-26] MEDS: HYDROcodone-acetaminophen 5-325 mg Tablet 1 TAB PO (05:06)
[2023-07-26 06:00] VITALS: BMI 39.7
[2023-07-26 07:38] VITALS: BP 142/60; PULSE 67; RESP 16; TEMP 36.7; O2SAT 92
--- NOTE | 2023-07-26 07:47 | PC.PHAR ---
Pharmacy to dose Vancomycin Use this page to adjust dose, Tinf, or tau when only a TROUGH is taken. VANCOMYCIN or AMINOGLYCOSIDE: VANCO mg/kg Last Name Lon Dose(mg) 2000 20.05 First Name Balta Tinf (hrs) 2 hrs : 45 Tau=freq (hrs) 24 hrs Location: [facility]- Cmax (calculated) 47.7 mcg/ml Cpeak (calculated) 46.1 mcg/ml Sex (M/F) M Cmin (trough): 22.5 mcg/ml AGE (yrs) 77 Calculated Vd: 74.8 liters Ht (inches) 72.0 Calculated Ke: 0.033 hrs-1 ABW (Kg) 133.0 Calculated T1/2: 21.24 hrs IBW (Kg) 77.6 mg/kg DW (Kg) 99.8 NEW Dose (mg) 1750 17.54 NEW Tinf (hrs) 1 NEW Tau (hrs) 24 VANCO GENT TARGETS Expected Cmax: 42.4 Targets Standard Dosing High Dose Expected Cpeak: 41.0 25 to 40 6 - 12 mcg/ml 20 - 24 mcg/ml Expected Cmin: 20.0 10 to 20 0.5 - 2 mcg/ml < 1 mcg/ml WHEN DO I GIVE THE NEXT DOSE? When will the Blood Conc. Be Equal to my New Expected Cmin? If Dose was HELD If Dose was GIVEN Give Next Dose In: (From time trough drawn) 4 hrs 28 hrs Where will the Conc. Be if I wait : 12.5 mcg/ml 27.4 mcg/ml 18 hrs
[2023-07-26] MEDS: enoxaparin 40 mg/0.4 mL Syringe SUBCUT (08:16)
[2023-07-26] MEDS: vancomycin 1,750 MG/350 ML PIGGYBACK 175 MG IV (08:16)
[2023-07-26] MEDS: cetirizine 10 mg Tablet PO (08:20)
[2023-07-26] MEDS: hyDRALAzine 10 mg Tablet PO ×3 (08:20→21:29)
[2023-07-26] MEDS: pantoprazole DR 40 mg Tablet PO (08:20)
[2023-07-26] MEDS: allopurinol 100 mg Tablet PO (08:20)
[2023-07-26] MEDS: amlodipine 5 mg Tablet PO (08:20)
[2023-07-26] MEDS: metoprolol tartrate 25 mg Tablet 12.5 MG PO ×2 (08:23→21:29)
[2023-07-26 09:07] VITALS: PULSE 73; RESP 18; O2SAT 93
[2023-07-26] MEDS: piperacillin-tazobactam 3.375 GM in sodium chloride 0.9% (plus) 50 ML IV ×2 (10:38→17:24)
--- NOTE | 2023-07-26 10:58 | P.PN_ITS ---
Subjective 2 Subjective: Patient is able to tell me his name, date of but stating that president is He Jaime Leukocytosis worsened No fever Signs of UTI present as well Added vancomycin along Zosyn and clindamycin CT head unremarkable Patient not on oxygen Vitals/I&O/Wt Last Vital Signs Temp 98.1 F 07/26/23 07:38 Pulse 73 07/26/23 09:07 Resp 18 07/26/23 09:07 BP 142/60 07/26/23 07:38 Pulse Ox 93 07/26/23 09:07 O2 Del Method Room Air 07/26/23 09:07 O2 Flow Rate 3 07/25/23 08:00 07/25/23 07/26/23 07/26/23 22:59 06:59 14:59 Intake Total 50 / 100 100 / 200 480 / 480 Output Total 1999 625 / 2625 Balance -1950 / -1900 -525 / -2425 480 / 480 Weight last 48 hrs Weight 132.993 kg Weight 126.552 kg Physical Exam 2 Narrative: Cellulitis signs seems to be getting better Hyperemia improved significantly Not on oxygen Breathing is much better as compared to yesterday No active crackles or wheezing Short attention span GCS [address] Abdomen soft Urinary Catheter Management: Rios: Cath Placed During This Visit: yes Reason for Continuing Indwelling Catheter: Other Urinary Catheter Date of Insertion: 07/25/23 Urinary Catheter Time of Insertion: 13:59 Data 07/26/23 02:16 07/26/23 02:16 Micro: Microbiology 07/23/23 23:10 Blood Culture - Preliminary Blood 07/23/23 23:13 Blood Culture - Preliminary Blood A&P Assessment and plan (1) Hypertension: (2) New onset of congestive heart failure: (3) Elevated liver transaminase level: (4) Cellulitis of left leg: (5) Bacteremia: (6) UTI (urinary tract infection): Plan Bacteremia CT head unremarkable Signs of UTI present Repeat cultures done yesterday Currently on clindamycin vancomycin and Zosyn Monitor and trend liver enzymes Check ammonia level Acute hypoxia resolved Patient seems to be having acute CHF exacerbation Will follow-up with echo Continue Lasix IV fluids discontinued Full code Cardiac diet Attestations 2 Medical Necessity Statement*: Continue medical management Diagnoses Hypertension I10 New onset of congestive heart failure I50.9 Elevated liver transaminase level R74.01 Cellulitis of left leg L03.116 Bacteremia R78.81 UTI (urinary tract infection) N39.0
[2023-07-26] MEDS: FUROsemide 10 mg/mL SDV 2mL 20 MG IVP (11:48)
[2023-07-26 11:51] VITALS: BP 149/66; PULSE 74; RESP 18; TEMP 36.9; O2SAT 91
[2023-07-26 13:12] LABS: Ammonia 38 umol/L (16-60)
[2023-07-26 16:25] VITALS: BP 145/65; PULSE 67; RESP 18; TEMP 36.5; O2SAT 94
[2023-07-26 20:00] VITALS: BP 145/65; PULSE 69; RESP 18; TEMP 37.4; O2SAT 91
[2023-07-26] MEDS: gabapentin 300 mg Capsule PO (21:29)
[2023-07-26] MEDS: atorvastatin 40 mg Tablet 80 MG PO (21:29)
[2023-07-27] VITALS (8 sets, daily range): BP systolic 139–165; BP diastolic 62–94; PULSE 65–90; RESP 16–18; TEMP 36.5–37.5; O2SAT 91–94; BMI 39.4
[2023-07-27] MEDS: piperacillin-tazobactam 3.375 GM in sodium chloride 0.9% (plus) 50 ML IV ×2 (02:26→17:46)
[2023-07-27] MEDS: HYDROcodone-acetaminophen 5-325 mg Tablet 1 TAB PO ×2 (04:00→20:57)
--- NOTE | 2023-07-27 04:33 | XRR_ITS ---
PROCEDURE INFORMATION: Exam: XR Left Hip Exam date and time: 07/27/2023 5:04 AM Age: 77 years old Clinical indication: Other: Swelling/discolration; Patient HX: C/O severe left hip pain. Edema and discolration to soft tissue on lateral side. ; Additional info: Pitting edema and pain TECHNIQUE: Imaging protocol: Radiologic exam of the left hip. Views: 2 or 3 views hip with pelvis when performed. COMPARISON: No relevant prior studies available. FINDINGS: Bones/joints: Moderate left hip joint space narrowing. Marginal osteophyte spurring of the lateral acetabulum. Negative for acute fracture. Negative for dislocation. Negative for osteolytic lesion. Soft tissues: Soft tissues are poorly characterized. Mild generalized edema superficially on the lateral side. XR/XR hip LT 2-3V wo/w pel* [id number] IMPRESSION: Negative for acute osseous abnormality.
--- NOTE | 2023-07-27 04:51 | PC.NURSE ---
While changing the patient's bedding after he pulled out his IV, this nurse noted that the patient had a softball size moveable mass to right lower back. It was also noted that the patient had 2-3+ pitting edema to his left hip. Pt denies injury, however he is confused. Pt complained of extreme pain when rolling the patient from side to side to change his linens, and exhibited extreme weakness of the LLE. Referred patient to the hospitalist Dr. Christie for review of pain and swelling. NO received and noted for plain x-ray of left hip. Radiology notified.
[2023-07-27 05:35] LABS: Basophils # 0.1 10^3/uL (0.0-0.1); Basophils % 0.3 %; Eosinophils # 0.1 10^3/uL (0.0-0.8); Eosinophils % 0.6 %; Hematocrit 36.2 % (37-53); Lymphocytes # 0.8 10^3/uL (0.8-4.8); Mean Corpuscular HGB Conc 32.6 g/dL (30-55); Mean Corpuscular Hemoglobin 31.6 pg (27-33); Mean Corpuscular Volume 96.8 fl (82-101); Mean Platelet Volume 11.3 fL (7.4-10.4); Monocytes # 0.9 10^3/uL (0.2-0.9); Monocytes % 5.3 %; Neutrophils # 13.53 10^3/uL (1.8-7.7); Neutrophils % 84.1 %; Nucleated Red Blood Cells % 0 %; Platelet Count 231 10^3/cmm (157-399); Red Blood Count 3.74 10^6/uL (3.85-5.65); Red Cell Distribution Width 14.9 % (12.1-15.1); White Blood Count 16.08 10^3/uL (3.29-11.43)
[2023-07-27 05:59] LABS: Alanine Aminotransferase 52 U/L (0-41); Albumin Level 2.5 g/dL (3.5-5.2); Alkaline Phosphatase 436 U/L (40-130); Anion Gap 16.9 (5-19); Aspartate Amino Transferase 83 U/L (0-40); Blood Urea Nitrogen 27 mg/dL (8-23); Calcium 8.2 mg/dL (8.5-10.5); Carbon Dioxide 21 mmol/L (22-29); Chloride 102 mmol/L (98-107); Globulin 3.8 g/dL (1.3-4.6); Glucose 188 mg/dL (65-115); Osmolality Calculated 292 mOsm/kg (285-295); Potassium 3.9 mmol/L (3.5-5.1); Sodium 136 mmol/L (136-145); Total Bilirubin 1.7 mg/dL (0.15-1.2); Total Protein 6.3 g/dL (6.6-8.7)
[2023-07-27] MEDS: amlodipine 5 mg Tablet PO (09:40)
[2023-07-27] MEDS: enoxaparin 40 mg/0.4 mL Syringe SUBCUT (09:40)
[2023-07-27] MEDS: vancomycin 1,750 MG/350 ML PIGGYBACK 350 MG IV (09:41)
[2023-07-27] MEDS: cetirizine 10 mg Tablet PO (09:41)
[2023-07-27] MEDS: allopurinol 100 mg Tablet PO (09:41)
[2023-07-27] MEDS: pantoprazole DR 40 mg Tablet PO (09:41)
[2023-07-27] MEDS: hyDRALAzine 10 mg Tablet PO ×3 (09:41→20:58)
[2023-07-27] MEDS: metoprolol tartrate 25 mg Tablet 12.5 MG PO ×2 (09:43→20:58)
--- NOTE | 2023-07-27 10:07 | P.PN_ITS ---
Subjective 2 Subjective: Afebrile, white count 29-16,000 Patient is able to tell me that president is Biden today No active signs of confusion No signs of stroke Hyperemia of left leg significantly improved Vitals/I&O/Wt Last Vital Signs Temp 98.0 F 07/27/23 07:25 Pulse 70 07/27/23 10:00 Resp 18 07/27/23 10:00 BP 153/71 07/27/23 07:25 Pulse Ox 94 07/27/23 10:00 O2 Del Method Room Air 07/27/23 10:00 O2 Flow Rate 3 07/25/23 08:00 07/26/23 07/27/23 07/27/23 22:59 06:59 14:59 Intake Total 530 / 1410 Output Total 700 / 700 1100 / 1800 Balance -170 / 710 -1100 / -390 Weight last 48 hrs Weight 131.995 kg Weight 132.993 kg Physical Exam 2 Narrative: Awake and alert Hyperemia of left leg improving Lower extremity edema Present Mild wheezing present today Currently on room air Pleasant cooperative GCS 15 Nonfocal neuroexam Distended abdomen nontender Rios catheter in place Urinary Catheter Management: Rios: Cath Placed During This Visit: yes Reason for Continuing Indwelling Catheter: Acute Urinary Retention or Obstruction Urinary Catheter Date of Insertion: 07/25/23 Urinary Catheter Time of Insertion: 13:59 Data 07/27/23 05:25 07/27/23 05:25 Micro: Microbiology 07/25/23 23:25 Urine Culture - Final Urine,Clean Catch 07/25/23 11:35 Blood Culture - Preliminary Blood 07/25/23 11:30 Blood Culture - Preliminary Blood A&P Assessment and plan (1) Hypertension: (2) New onset of congestive heart failure: (3) Elevated liver transaminase level: (4) Acute kidney injury: (5) UTI (urinary tract infection): (6) Cellulitis of left leg: (7) Bacteremia: Plan Leukocytosis improving Continue antibiotics Plan to keep him here 1 more day to watch his creatinine Most likely will discharge him on p.o. antibiotics Patient stating that he lives alone at home Today he is not confused at all Fever and leukocytosis improving Cultures remain negative Rios catheter will be removed before he goes home Will request PT eval as well CT head unremarkable Acute preserved ejection fraction heart failure exacerbation, creatinine worsening 2.0 today IV fluids held Adequate urine output Negative fluid balance, will increase the dose of Lasix Full code Cardiac diet DVT prophylaxis on board Attestations 2 Medical Necessity Statement*: Continue medical management Diagnoses Hypertension I10 New onset of congestive heart failure I50.9 Elevated liver transaminase level R74.01 Acute kidney injury N17.9 UTI (urinary tract infection) N39.0 Cellulitis of left leg L03.116 Bacteremia R78.81
--- NOTE | 2023-07-27 11:15 | PC.SOCIAL ---
IMM Update pg 2 of IMM updated and reviewed w/ patient. Copy provided and copy dated, initialed and placed in chart.
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
--- NOTE | 2023-07-27 14:47 | PC.NURSE ---
Notified Dr. Robbins of patient still complaining of so much pain when left leg is touched or moved. Staff cannot get patient to turn on side even to change sheets. Patient yells out. Dr. Robbins is aware.
[2023-07-27] MEDS: atorvastatin 40 mg Tablet 80 MG PO (20:58)
[2023-07-27] MEDS: gabapentin 300 mg Capsule PO (20:58)
[2023-07-27] MEDS: FUROsemide 10 mg/mL SDV 10mL 60 MG IVP (21:11)
[2023-07-28] VITALS (7 sets, daily range): BP systolic 117–157; BP diastolic 64–71; PULSE 57–74; RESP 16–17; TEMP 36.4–37.1; O2SAT 90–95
[2023-07-28] MEDS: piperacillin-tazobactam 3.375 GM in sodium chloride 0.9% (plus) 50 ML IV (01:23)
[2023-07-28 06:04] LABS: Basophils # 0.1 10^3/uL (0.0-0.1); Basophils % 0.5 %; Eosinophils # 0.1 10^3/uL (0.0-0.8); Eosinophils % 0.8 %; Hematocrit 38.9 % (37-53); Lymphocytes # 0.8 10^3/uL (0.8-4.8); Lymphocytes % 5.3 %; Mean Corpuscular HGB Conc 33.2 g/dL (30-55); Mean Corpuscular Hemoglobin 31.9 pg (27-33); Mean Corpuscular Volume 96.3 fl (82-101); Mean Platelet Volume 11.9 fL (7.4-10.4); Monocytes # 0.9 10^3/uL (0.2-0.9); Monocytes % 6.4 %; Neutrophils # 12.22 10^3/uL (1.8-7.7); Nucleated Red Blood Cells % 0 %; Platelet Count 266 10^3/cmm (157-399); Red Blood Count 4.04 10^6/uL (3.85-5.65); White Blood Count 14.73 10^3/uL (3.29-11.43)
[2023-07-28 06:26] LABS: Alanine Aminotransferase 52 U/L (0-41); Albumin Level 2.8 g/dL (3.5-5.2); Alkaline Phosphatase 432 U/L (40-130); Anion Gap 18.5 (5-19); Aspartate Amino Transferase 69 U/L (0-40); Blood Urea Nitrogen 28 mg/dL (8-23); Calcium 8.6 mg/dL (8.5-10.5); Carbon Dioxide 22 mmol/L (22-29); Chloride 100 mmol/L (98-107); Globulin 4.3 g/dL (1.3-4.6); Glucose 123 mg/dL (65-115); Osmolality Calculated 291 mOsm/kg (285-295); Potassium 3.5 mmol/L (3.5-5.1); Sodium 137 mmol/L (136-145); Total Bilirubin 1.7 mg/dL (0.15-1.2); Total Protein 7.1 g/dL (6.6-8.7)
--- NOTE | 2023-07-28 09:10 | PC.CHAP ---
Pastoral Care Encounter/Spiritual Assessment Type of Contact [] Declined electoral officer visit [] Patient/Family/Request visit [] Outpatient visit [] Follow-up visit [] Physician referral [] Code/Alert [] Routine visit [] Staff referral [] Actively dying [] Patient sleeping [] Family support [] [] Out of room [] Palliative care [] [x] Receiving care in room [] Pre-surgical visit [] Trauma [] Long length of stay [] ICU visit [] Other: Relational/Emotional Strength [] Patient feels connected with others/family/visitors/staff [] Distress [] Loneliness/isolation [] Abandonment Spirituality of Patient [] Person of Latrice [] Attends Mu-Ism of their [place] [] Believes in Prayer [] Reads Bible or Gnosticist materials [] There are Spiritual issues to be addressed Recycling Program Manager Interventions [] Prayer [] Active listening [] Non-anxious presence [] Spiritual/emotional support [] Crisis/trauma care [] Spiritual counseling [] Bereavement support [] Provided bereavement packet [] Provided Bible/devotional materials [] Provided toy/stuffed animal, coloring book to patient or family member [] Provided Communion [] Anointing/[place] [] Salvation [] Completed spiritual assessment [] Other: Impact on Illness or Injury [] Angry [] Fearful [] Anxious [] Often cries [] Exhaustion [] Unable to work [] Unable to attend pentecostalism [] Unable to walk/stand [] Unable to read [] Unable to drive [] Unable to eat/drink [] Unable to sleep [] Unable to be with family [] Patient intubated [] Other: Summary Time spent with patient
[2023-07-28] MEDS: hyDRALAzine 10 mg Tablet PO ×3 (09:51→21:06)
[2023-07-28] MEDS: enoxaparin 40 mg/0.4 mL Syringe SUBCUT (09:51)
[2023-07-28] MEDS: amlodipine 5 mg Tablet PO (09:52)
[2023-07-28] MEDS: pantoprazole DR 40 mg Tablet PO (09:52)
[2023-07-28] MEDS: cetirizine 10 mg Tablet PO (09:52)
[2023-07-28] MEDS: allopurinol 100 mg Tablet PO (09:52)
[2023-07-28] MEDS: metoprolol tartrate 25 mg Tablet 12.5 MG PO ×2 (09:55→21:06)
[2023-07-28] MEDS: HYDROcodone-acetaminophen 5-325 mg Tablet 1 TAB PO ×2 (09:59→21:06)
--- NOTE | 2023-07-28 11:11 | P.PN_ITS ---
Subjective 2 Subjective: Patient this morning is agreeable for his fifth IV for antibiotics At the time of my evaluation he was very calm and cooperative however as per the nursing staff patient became very aggressive when nurse tried to put another IV yesterday We are requiring one-to-one supervision Will inform his significant other as well No active signs of stroke Patient is awaiting getting up on his feet He is tries to pull his Rios catheter as well Creatinine improving Leukocytosis improving Culture sensitivity reviewed patient is sensitive to penicillin Vitals/I&O/Wt Last Vital Signs Temp 98.3 F 07/28/23 07:44 Pulse 74 07/28/23 07:44 Resp 16 07/28/23 07:44 BP 117/66 07/28/23 07:44 Pulse Ox 92 07/28/23 07:44 O2 Del Method Room Air 07/28/23 09:17 O2 Flow Rate 3 07/25/23 08:00 07/27/23 07/28/23 07/28/23 22:59 06:59 14:59 Intake Total 590 / 590 100 / 690 240 / 240 Output Total 200 / 700 2625 / 3325 1000 / 1000 Balance 390 / -110 -2525 / -2635 -760 / -760 Weight last 48 hrs Weight 125.055 kg Weight 131.995 kg Physical Exam 2 Narrative: No signs of stroke No sign meningitis own GCS 15 Awake and alert Signs of fluid load improving Left leg edema slightly better however still present Erythema hyperemia improved significantly Hip joint pain related to arthritis S1, S2 Currently on room air Urinary Catheter Management: Rios: Cath Placed During This Visit: yes Reason for Continuing Indwelling Catheter: Acute Urinary Retention or Obstruction Urinary Catheter Date of Insertion: 07/25/23 Urinary Catheter Time of Insertion: 13:59 Data 07/28/23 04:44 07/28/23 04:44 Micro: Microbiology 07/23/23 23:10 Blood Culture - Preliminary Blood 07/25/23 23:25 Urine Culture - Final Urine,Clean Catch A&P Assessment and plan (1) Hypertension: (2) New onset of congestive heart failure: (3) Elevated liver transaminase level: (4) Acute kidney injury: (5) UTI (urinary tract infection): (6) Cellulitis of left leg: (7) Bacteremia: (8) Delirium: Plan Delirium related to UTI and bacteremia No signs of stroke or meningitis Afebrile Leukocytosis improving Group be strep, patient has removed for IV lines, not a good candidate to get a PICC line, I am planning to discharge him on oral antibiotics on 07/29 Will inform his partner Repeat cultures are negative Acute on chronic kidney disease related to acute CHF exacerbation Anticipating improvement with diuresis Continue Lasix Full code Cardiac diet No signs of DVT left leg Hip joint has arthritis CT head unremarkable Will add Seroquel for tonight Will require one-to-one supervision in case he would try to remove his fifth IV Attestations 2 Medical Necessity Statement*: Continue medical management Diagnoses Hypertension I10 New onset of congestive heart failure I50.9 Elevated liver transaminase level R74.01 Acute kidney injury N17.9 UTI (urinary tract infection) N39.0 Cellulitis of left leg L03.116 Bacteremia R78.81 Delirium R41.0
--- NOTE | 2023-07-28 11:16 | CTR_ITS ---
PROCEDURE INFORMATION: Exam: CT Left Lower Extremity Without Contrast, Hip Exam date and time: 07/28/2023 9:44 PM Age: 77 years old Clinical indication: Pain; Hip; Left; Additional info: Hip pain TECHNIQUE: Imaging protocol: CT of the left lower extremity without contrast was performed. Exam focused on the hip. Radiation optimization: All CT scans at this facility use at least one of these dose optimization techniques: automated exposure control; mA and/or kV adjustment per patient size (includes targeted exams where dose is matched to clinical indication); or iterative reconstruction. COMPARISON: CR (PELVIS, ) 07/27/2023 5:04 AM RADIATION DOSE METRICS: Total DLP (mGy-cm): 1107 FINDINGS: Bones/joints: Moderate osteoarthritis of the left hip without evidence of fracture or subluxation. No gross evidence of joint effusion. Soft tissues: There is superficial soft tissue edema/contusion overlying the left hip. No focal fluid collection or hematoma. Extensive sigmoid diverticulosis is noted without evidence of diverticulitis. CT/CT hip LT wo con* [id number] IMPRESSION: 1. Soft tissue contusion without evidence of fracture or subluxation of the left hip.
--- NOTE | 2023-07-28 11:17 | CTR_ITS ---
PROCEDURE INFORMATION: Exam: CT Left Lower Extremity Without Contrast; Lower Leg Exam date and time: 07/28/2023 9:47 PM Age: 77 years old Clinical indication: Pain; Edema; Location not specified; Lower leg; Left; Prior surgery; Surgery date: 6+ months; Surgery type: Knee-unk surg date; Additional info: Pain and swelling TECHNIQUE: Imaging protocol: CT of the left lower extremity without contrast was performed. Exam focused on the lower leg. Radiation optimization: All CT scans at this facility use at least one of these dose optimization techniques: automated exposure control; mA and/or kV adjustment per patient size (includes targeted exams where dose is matched to clinical indication); or iterative reconstruction. COMPARISON: CT hip LT wo con* [id number] 07/28/2023 9:44 PM RADIATION DOSE METRICS: Total DLP (mGy-cm): 1107.01 FINDINGS: Bones/joints: Stubbing constrained total left knee arthroplasty and patellar resurfacing without evidence of hardware loosening or periprosthetic fracture. There is a moderate-large joint effusion with foci of air in the suprapatellar bursa concerning for joint infection. Correlation with joint fluid analysis is recommended. Soft tissues: Volar soft tissue edema and skin thickening, possibly reflecting cellulitis. No evidence of superficial soft tissue air, or fluid collection. Mild diffuse muscular fatty atrophy. Quadriceps and patellar tendons are grossly intact. CT/CT lower leg LT wo con* [id number] IMPRESSION: 1. Total left knee arthroplasty with moderate-large joint effusion and foci of air in the suprapatellar bursa concerning for joint infection. Correlation with joint fluid analysis and orthopedic evaluation is recommended. No evidence of periprosthetic fracture.
[2023-07-28] MEDS: FUROsemide 10 mg/mL SDV 10mL 60 MG IVP (11:30)
[2023-07-28] MEDS: levoFLOXacin 750 mg Tablet PO (11:31)
[2023-07-28] MEDS: atorvastatin 40 mg Tablet 80 MG PO (21:06)
[2023-07-28] MEDS: gabapentin 300 mg Capsule PO (21:06)
[2023-07-28] MEDS: FUROsemide 40 mg Tablet 60 MG PO (22:36)
[2023-07-29] VITALS: BP 115/69; PULSE 73; RESP 16; TEMP 36.9; O2SAT 93
--- NOTE | 2023-07-29 00:03 | PM.CONSULT ---
Providers/Reason For Consult Consulting Physician/Specialty*: Lee Lr DO/orthopedic surgery Reason for Consult*: Rule out septic left knee periprosthetic joint infection Attending Physician: Yadira Robbins MD Primary Care Provider: AYSHA Rodriguez History of Present Illness History of Present Illness Balta Forrest is a 77 year old male presenting to the emergency department back on 07/22/2023 was admitted on 07/23/2023 by the hospitalist team for left lower extremity cellulitis. Patient on H&P is able to state the appropriate year of 2023 as well as that Christiano Herndon is the president. He does seem to have some confusion. Patient has a history of primary left total knee arthroplasty done he states back in 2005 and had a revision left total knee arthroplasty and what he thinks to be [id number] this was he states done in [place] at [facility]. I have no record in our chart of previous orthopedic history. patient's been appropriately worked up with the hospitalist team and had been on broad-spectrum empiric antibiotics had had a positive blood culture. At this point in time no notable source besides patient's left lower extremity cellulitis. Patient had had slow steady improvement in his WBC count which is at its highest was close to 22 WBC and downtrended lowest today to roughly 15 WBC. Patient did have elevated inflammatory markers as well. Patient over time and had some clinical improvement started focalizing his pain more to the left knee a CT scan was performed of the left knee today and was found to have significant joint effusion as well as trace tear with inside the joint concern for possible infection. Orthopedics was consulted for evaluation and joint aspiration. Patient denies any fevers or chills, persistent pain in the left knee Review of Systems General: Reports: ROS unobtainable due to mental status Medications/Allergies Home Medications Medication Instructions Recorded Confirmed Last Taken Type amlodipine 5 mg tablet 5 mg PO QAM 05/01/22 07/23/23 Unknown History celecoxib 200 mg capsule 200 mg PO BID 05/01/22 07/23/23 Unknown History cetirizine 10 mg tablet 10 mg PO DAILY 05/01/22 07/23/23 Unknown History gabapentin 300 mg capsule 300 mg PO BEDTIME 05/01/22 07/23/23 Unknown History rosuvastatin 20 mg tablet 20 mg PO BEDTIME 05/01/22 07/23/23 Unknown History allopurinol 100 mg tablet 100 mg PO QAM 07/23/23 07/23/23 Unknown History azithromycin 250 mg tablet See Rx Instructions .Route .COMPLEX 07/23/23 07/23/23 07/22/23 History fluticasone propionate 50 2 spray intranasal DAILY 07/23/23 07/23/23 Unknown History mcg/actuation nasal spray,suspension hydroxyzine HCl 25 mg tablet 25 mg PO QID PRN Itching 07/23/23 07/23/23 Unknown History methylprednisolone 4 mg tablets in See Rx Instructions .Route .COMPLEX 07/23/23 07/23/23 Unknown History a dose pack tadalafil 20 mg tablet See Rx Instructions .Route .COMPLEX 07/23/23 07/23/23 Unknown History triamcinolone acetonide 0.1 % See Rx Instructions .Route .COMPLEX 07/23/23 07/23/23 Unknown History topical ointment Allergies Allergy/AdvReac Type Severity Reaction Status Date / Time No Known Drug Allergies Allergy Unknown Verified 07/23/23 08:42 Current Medications Generic Name Dose Route Start Last Admin Trade Name Freq PRN Reason Stop Dose Admin Hydrocodone Bitart/Acetaminophen 1 tab 07/23/23 08:55 07/28/23 21:06 Hydrocodone-Acetaminophen 5-325 Mg Tablet PO 1 tab Q4H PRN Administration MODERATE PAIN Allopurinol 100 mg 07/25/23 09:00 07/28/23 09:52 Allopurinol 100 Mg Tablet PO 100 mg DAILY ALFA Administration Amlodipine Besylate 5 mg 07/25/23 09:00 07/28/23 09:52 Amlodipine 5 Mg Tablet PO 5 mg DAILY ALFA Administration Atorvastatin Calcium 80 mg 07/23/23 21:00 07/28/23 21:06 Atorvastatin 40 Mg Tablet PO 80 mg BEDTIME ALFA Administration Cetirizine HCl 10 mg 07/24/23 09:00 07/28/23 09:52 Cetirizine 10 Mg Tablet PO 10 mg DAILY ALFA Administration Enoxaparin Sodium 40 mg 07/23/23 08:00 07/28/23 09:51 Enoxaparin 40 Mg/0.4 Ml Syringe SUBCUT 40 mg Q24H ALFA Administration Furosemide 60 mg 07/28/23 23:20 07/28/23 22:36 Furosemide 40 Mg Tablet PO 60 mg Q12H ALFA Administration Gabapentin 300 mg 07/23/23 21:00 07/28/23 21:06 Gabapentin 300 Mg Capsule PO 300 mg BEDTIME ALFA Administration Hydralazine HCl 10 mg 07/25/23 15:00 07/28/23 21:06 Hydralazine 10 Mg Tablet PO 10 mg TID ALFA Administration Levofloxacin 750 mg 07/28/23 11:20 07/28/23 11:31 Levofloxacin 750 Mg Tablet PO 750 mg DAILY@0600 ALFA Administration Protocol Metoprolol Tartrate 12.5 mg 07/25/23 21:00 07/28/23 21:06 Metoprolol Tartrate 25 Mg Tablet PO 12.5 mg BID@0900,2100 ALFA Administration Pantoprazole Sodium 40 mg 07/23/23 09:00 07/28/23 09:[address] 40 Mg Tablet PO 40 mg DAILY ALFA Administration PFSH Acute PFSH: Medical History Hyperlipidemia Hypertension Social History Smoking and tobacco/nicotine status: former use of tobacco/nicotine Vitals/I&O/Wt Last Vital Signs Temp 98.4 F 07/28/23 20:00 Pulse 69 07/28/23 20:00 Resp 17 07/28/23 20:00 BP 122/64 07/28/23 20:00 Pulse Ox 94 07/28/23 20:00 O2 Del Method Room Air 07/28/23 15:48 O2 Flow Rate 3 07/25/23 08:00 07/28/23 07/28/23 07/29/23 14:59 22:59 06:59 Intake Total 240 / 240 120 / 360 Output Total 2175 / 2175 200 / 2375 Balance -1935 / -1935 -80 / -2014 Weight last 48 hrs Weight 275 lb 11.2 oz Weight 291 lb Physical Exam Narrative: Examination left knee: Examination of the left lower extremity demonstrates fusiform swelling throughout the left lower extremity increased compared to the contralateral lower extremity. Minimal appearing erythema noted but positive warmth throughout the left lower extremity. There is a large palpable joint effusion with the previous anterior midline incision from total knee arthroplasty. He has pain with micromotion of the knee and unable to tolerate any range of motion. He will wiggle his toes plantarflex and dorsiflex the ankle. He does endorse sensations intact light touch distally. Distal pulses are palpable the compartments are soft and compressible. There is no subcutaneous gas or bulla or emphysema noted. No open wound or drainage noted. Urinary Catheter Management: Rios: Cath Placed During This Visit: yes Reason for Continuing Indwelling Catheter: Acute Urinary Retention or Obstruction Urinary Catheter Date of Insertion: 07/25/23 Urinary Catheter Time of Insertion: 13:59 Data 07/28/23 04:44 07/28/23 04:44 Micro: Microbiology 07/23/23 23:10 Blood Culture - Final Blood Other CT: Radiologist's impression: CT/CT lower leg LT wo con* [id number] IMPRESSION: 1. Total left knee arthroplasty with moderate-large joint effusion and foci of air in the suprapatellar bursa concerning for joint infection. Correlation with joint fluid analysis and orthopedic evaluation is recommended. No evidence of periprosthetic fracture. CT/CT hip LT wo con* [id number] IMPRESSION: 1. Soft tissue contusion without evidence of fracture or subluxation of the left hip. Xray Ortho: My impression: X-rays multiple views of the left knee from 07/22/2023 demonstrate a revision left total knee arthroplasty that appears to be in appropriate position alignment with no evidence of hardware failure loosening or fracture. Radiologist's impression: XR/XR knee LT 3V* [id number] IMPRESSION: 1. Semi constrained total left knee arthroplasty without evidence of hardware failure or loosening. 2. Trace joint effusion. 3. No acute fracture. XR/XR hip LT 2-3V wo/w pel* [id number] IMPRESSION: Negative for acute osseous abnormality. A&P Assessment and plan (1) Infection of prosthetic left knee joint: Plan Procedure in detail: Orthopedics was asked for left knee arthrocentesis. Patient was seen and examined obtained verbal consent he was agreeable to proceeding with joint aspiration to evaluate the fluid. The left knee was subsequent identified it was then prepped in standard orthopedic fashion with ChloraPrep. Under sterile aseptic technique an 18-gauge needle with a 50 cc syringe was placed utilizing a superior and lateral approach to the suprapatellar pouch. Patient was then joint was aspirated and aspirated andree cloudy purulence out of the knee a 50 cc. Patient tolerated this without complications the needle was subsequently withdrawn. And was dressed with appropriate island dressing. Fluid was then sent for fluid cell analysis for cell count, aerobic and anaerobic cultures, Gram stain, fungi, crystals. Labs reviewed Imaging reviewed Pain control On empiric antibiotics Hospitalist on board as primary Left knee arthrocentesis was performed patient tolerated procedure Patient is found on my evaluation as well as the aspiration was found to have andree purulence of a left knee revision arthroplasty. In history taking with this patient this 2 procedures per the patient was performed in [facility] with a primary and subsequently revision. He is apparently had bouts of cellulitis multiple times per the previous hospitalist note upon admission. This point he was initially treated for left lower extremity cellulitis. just today focalized to his left knee and a CT scan was performed a left knee ordered by the hospitalist, I was then subsequently consulted for evaluation and arthrocentesis. arthrocentesis patient found to have andree purulence and at this point in time he has total knee revision arthroplasty. At this point in time I would recommend transfer to a tertiary care center for appropriate care of this patient as I do not perform revision arthroplasty procedures and in the setting for this patient to hopefully better optimize his outcomes. Case was discussed with hospitalist and will set up transfer. Patient understands and agrees with plan all questions answered. Coding Level of Care Code Acute Code for Chg Fwd Diagnoses Infection of prosthetic left knee joint T84.54XA Time Spent (min) 50
--- NOTE | 2023-07-29 00:33 | PM.CCNAC ---
Critical Care Event Note The high probability of a clinically significant, sudden or life threatening deterioration of the patient's [] system(s) required my full and direct attention, intervention and personal management. The critical care time is as shown. This time is in addition to time spent performing any reported procedures but includes the following: [x] Data and vital sign review and interpretation [x] Patient assessment, examination and intervention [x] Documentation [x] Medication orders and management Critical Care Time Code activated: No Critical Care Time (min): 45 Additional information about critical care time: - Spoke to Gunner ba's CT/CT lower leg LT wo con* [id number] IMPRESSION: 1. Total left knee arthroplasty with moderate-large joint effusion and foci of air in the suprapatellar bursa concerning for joint infection. Correlation with joint fluid analysis and orthopedic evaluation is recommended. No evidence of periprosthetic fracture. -Spoke to radiologist -Findings concerning for septic arthritis -Patient was examined, he is normotensive, afebrile, alert to person, not to place, not to time, he is encephalopathic -Complaining of severe left knee pain, on examination he has left knee erythema, swelling extending up his thigh -When asked him when he had his original knee replacement he tells me 2006, he is not exactly sure what hospital but possibly [facility], he will tells me that he had a revision in 2011, he cannot really give me the details -Looking at prior notes, seems like patient originally had his surgery in 2006 and revision for possible loosening in 2011, he has had multiple episodes of cellulitis he has never as per documentation had evidence of septic arthritis, or joint infection ? On examination on admission as per documentation, there was concern for left lower extremity cellulitis, that was below the knee joint, he did have leukocytosis as high as 21,000 during his hospitalization, CRP was as high as 168, sed rate was as high as 68, initial blood cultures 2 out of 4 positive for group B strep, manage on broad-spectrum antibiotic therapy, ?today he is encephalopathic, afebrile, features of sepsis given encephalopathic, white count of 14,000, ESR of 105, CRP pending, Pro-Vinod pending, - -Spoke to Dr. Lr, will consult, concerns for septic arthritis, and patient needs urgent arthrocentesis -Dr. St. Johns came and see saw patient, perform urgent arthrocentesis, 50 cc of andree pus, drain, concerning for septic arthritis given his presentation, given his history of knee replacement and revision, given his complicated history, recommended transfer to tertiary level center -Spoke to [facility], spoke to Dr. Alexander, concern for septic arthritis, I have kept him n.p.o. I broaden his antibiotic coverage to vancomycin, Zosyn, recommend transfer given his complicated nature of his infection, need for higher level of care, kindly accepted patient in transfer -Spoke to patient he is alert to person, not to place, not to time, about transfer to tertiary level center he remains encephalopathic, Coding Level of Care Code Acute Code for g Fwd
[2023-07-29] MEDS: HYDROcodone-acetaminophen 5-325 mg Tablet 1 TAB PO (00:50)
[2023-07-29 00:57] LABS: Basophils # 0.1 10^3/uL (0.0-0.1); Basophils % 0.4 %; Eosinophils % 0.2 %; Hematocrit 41.4 % (37-53); Lymphocytes # 0.9 10^3/uL (0.8-4.8); Lymphocytes % 6.9 %; Mean Corpuscular HGB Conc 31.9 g/dL (30-55); Mean Corpuscular Hemoglobin 32.2 pg (27-33); Mean Platelet Volume 11.8 fL (7.4-10.4); Monocytes # 0.8 10^3/uL (0.2-0.9); Monocytes % 6.3 %; Neutrophils # 10.64 10^3/uL (1.8-7.7); Neutrophils % 84.1 %; Nucleated Red Blood Cells % 0 %; Platelet Count 256 10^3/cmm (157-399); Red Cell Distribution Width 15.2 % (12.1-15.1); White Blood Count 12.67 10^3/uL (3.29-11.43)
[2023-07-29 01:02] LABS: Erythrocyte Sedimentation Rate 105 mm/hr (0-10)
[2023-07-29 01:10] LABS: Cyto Order Verification No Order
[2023-07-29 01:22] LABS: Crystals, Fluid SENT TO PATH
[2023-07-29] MEDS: vancomycin 1,500 MG/300 ML PIGGYBACK 200 MG IV (01:24)
[2023-07-29 01:26] LABS: RBC Synovial Fluid 101 10^3/uL (0-0)
[2023-07-29 01:33] LABS: Anion Gap 17.3 (5-19); Blood Urea Nitrogen 33 mg/dL (8-23); C Reactive Protein 195.9 mg/L (0.0-4.9); Calcium 8.3 mg/dL (8.5-10.5); Carbon Dioxide 25 mmol/L (22-29); Chloride 98 mmol/L (98-107); Glucose 151 mg/dL (65-115); Osmolality Calculated 294 mOsm/kg (285-295); Potassium 3.3 mmol/L (3.5-5.1); Sodium 137 mmol/L (136-145)
[2023-07-29 01:36] LABS: Appearance Synovial Fluid CLOUDY (CLEAR)
[2023-07-29 01:37] LABS: Color Synovial Fluid OTHER (PALE YELLOW); Glucose Synovial Fluid 3 mg/dL; PATH Referal YES
[2023-07-29 01:41] LABS: Procalcitonin 1.15 ng/mL (0-0.5)
--- NOTE | 2023-07-29 02:11 | PC.NURSE ---
report called to Mary Ann Blackmon RN at [facility].
[2023-07-29 02:57] LABS: Thyroid Stimulating Hormone 2.13 uIU/mL (0.27-4.20); Vitamin B12 1521 pg/mL (232-1245)
[2023-07-29] MEDS: piperacillin-tazobactam 3.375 GM in sodium chloride 0.9% (plus) 50 ML IV (03:16)
[2023-07-29 04:00] VITALS: BP 130/52; PULSE 70; RESP 17; TEMP 36.9; O2SAT 92
[2023-07-29 07:20] VITALS: BP 134/63; PULSE 75; RESP 14; TEMP 36.6; O2SAT 93
[2023-07-29 07:55] VITALS: RESP 14; O2SAT 93
[2023-07-29] MEDS: morphine 4 mg/mL SDV 1 mL 2 MG IVP (07:55)
--- NOTE | 2023-07-29 09:05 | PC.NURSE ---
Patient was transferred to [facility]. Report called to Jenelle Blackmon by night custodian nurse. Patient left at 0810. Pain medication give per Ambulance staff.
[2023-07-29 09:10] VITALS: RESP 14; O2SAT 93
--- NOTE | 2023-07-29 12:24 | P.TS_ITS ---
Transfer Summary Providers Date of Admission: 07/23/23 02:05 Date of Discharge/Transfer: 07/29/23 Attending Provider at Admission: Gillian Dangelo MD Attending Provider at Transfer: Robles Robbins MD Primary Care Provider: AYSHA Rodriguez Transfer Plans: Anticipated date of transfer: 07/29/23 . Diagnoses at Discharge Discharge Diagnosis (1) Infection of prosthetic left knee joint: Status: Acute Reason for Visit Reason for Visit pain in leg Hospital Course Hospital Course 77-year-old male who was admitted for management evaluation of cellulitis of left leg, he was initially given fluids, however echo showed preserved action fraction heart failure exacerbation fluids were discontinued he was given Lasix which improved his edema of left leg however he was not able to put any weight on it, his white count jumped up to 21,000, his antibiotics were escalated, during hospitalization he was diagnosed with UTI as well, he remained hemodynamically stable however had multiple episodes of confusion, I requested CT hip and CT scan of lower extremities which was delayed because patient was not able to lay still it was done later in the day when we were able to catch multiple air-fluid pockets in the left knee, Dr. Lr did arthrocentesis and recommended washout of knee at a tertiary center because of complicated anatomy. Patient was transferred overnight by Dr. Stephy shore. 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, S2 Currently on room air Urinary Catheter Management: Rios: Cath Placed During This Visit: yes Reason for Continuing Indwelling Catheter: Acute Urinary Retention or Obstruction Urinary Catheter Date of Insertion: 07/25/23 Urinary Catheter Time of Insertion: 13:59 TS Data Studies Completed and Pending Pending at discharge Category Date Time Status Abscess Culture and Gram Stain Stat Lab 07/29/23 00:15 Results Aerobic Bacterium Id & Suscept Routine Lab 07/29/23 00:15 Received Anaerobic Culture Stat Lab 07/29/23 00:15 Received Blood Cultures ([facility]) Routine Lab 07/23/23 23:13 Results Blood Cultures ([facility]) Routine Lab 07/25/23 11:30 Results Blood Cultures ([facility]) Routine Lab 07/25/23 11:35 Results Blood Cultures ([facility]) Routine Lab 07/29/23 00:43 Received Blood Cultures ([facility]) Routine Lab 07/29/23 00:51 Received Fungal Culture not HR/SK/BL Stat Lab 07/29/23 00:15 Received Completed Studies During Hospitalization Category Date Time Status CT head wo con* [id number] Routine Cat Scan 07/25/23 13:[address] hip LT wo con* [id number] Routine Cat Scan 07/28/23 11:[address] lower leg LT wo con* [id number] Routine Cat Scan 07/28/23 11:17 Completed CXRP [XR chest 1V portable 16200] Routine Exams 07/23/23 05:37 Completed XR chest 1V portable [id number] Routine Exams 07/25/23 11:01 Completed XR chest 1V portable [id number] Stat Exams 07/22/23 22:11 Completed XR hip LT 2-3V wo/w pel* [id number] Routine Exams 07/27/23 04:33 Completed XR knee LT 3V* [id number] Stat Exams 07/22/23 22:22 Completed Blood Cultures ([facility]) Routine Lab 07/23/23 23:10 Completed CV. echo complete* [id number] Routine Ultrasound 07/25/23 11:03 Completed US gall bladder [id number] Routine Ultrasound 07/23/23 10:18 Completed US venous duplex lower extremity LT [CV venous duplex Ultrasound 07/22/23 22:[place] [address]] Stat Laboratory Last Values WBC 12.67 10^3/uL (3.29-11.43) H 07/29/23 00:51 RBC 4.10 10^6/uL (3.85-5.65) 07/29/23 00:51 Hgb 13.20 g/dL (11.27-16.99) 07/29/23 00:51 Hct 41.4 % (37-53) 07/29/23 00:51 MCV 101.0 fl (82-101) 07/29/23 00:51 MCH 32.2 pg (27-33) 07/29/23 00:51 MCHC 31.9 g/dL (30-55) 07/29/23 00:51 RDW 15.2 % (12.1-15.1) H 07/29/23 00:51 Plt Count 256 10^3/cmm (157-399) 07/29/23 00:51 MPV 11.8 fL (7.4-10.4) H 07/29/23 00:51 Neut % (Auto) 84.1 % 07/29/23 00:51 Lymph % (Auto) 6.9 % 07/29/23 00:51 Ashley % (Auto) 6.3 % 07/29/23 00:51 Eos % (Auto) 0.2 % 07/29/23 00:51 Baso % (Auto) 0.4 % 07/29/23 00:51 Neut # (Auto) 10.64 10^3/uL (1.8-7.7) H 07/29/23 00:51 Lymph # (Auto) 0.9 10^3/uL (0.8-4.8) 07/29/23 00:51 Ashley # (Auto) 0.8 10^3/uL (0.2-0.9) 07/29/23 00:51 Eos # (Auto) 0.0 10^3/uL (0.0-0.8) 07/29/23 00:51 Baso # (Auto) 0.1 10^3/uL (0.0-0.1) 07/29/23 00:51 Nucleated RBC % (auto) 0 % 07/29/23 00:51 Nucleated RBCs # 0.0 /100WBC 07/29/23 00:51 ESR 105 mm/hr (0-10) H 07/29/23 00:51 PT 16.90 SECONDS (12.1-14.9) H 07/24/23 09:44 INR 1.32 (0.8-1.2) H 07/24/23 09:44 Sodium 137 mmol/L (136-145) 07/29/23 00:51 Potassium 3.3 mmol/L (3.5-5.1) L 07/29/23 00:51 Chloride 98 mmol/L (98-107) 07/29/23 00:51 Carbon Dioxide 25 mmol/L (22-29) 07/29/23 00:51 Anion Gap 17.3 (5-19) 07/29/23 00:51 BUN 33 mg/dL (8-23) H 07/29/23 00:51 Creatinine 1.9 mg/dL (0.7-1.2) H 07/29/23 00:51 GFR Calculation Not Reportable 07/29/23 00:51 Glucose 151 mg/dL (65-115) H 07/29/23 00:51 POC Glucose 143 mg/dL (70-110) H 07/25/23 22:16 Estimat Average Glucose 120 07/22/23 23:10 Hemoglobin A1c 5.8 % (4.0-6.0) 07/22/23 23:10 Calculated Osmolality 294 mOsm/kg (285-295) 07/29/23 00:51 Lactic Acid 1.5 mmol/L (0.5-2.2) 07/22/23 23:40 Calcium 8.3 mg/dL (8.5-10.5) L 07/29/23 00:51 Total Bilirubin 1.7 mg/dL (0.15-1.2) H 07/28/23 04:44 AST 69 U/L (0-40) H 07/28/23 04:44 ALT 52 U/L (0-41) H 07/28/23 04:44 Alkaline Phosphatase 432 U/L (40-130) H 07/28/23 04:44 Ammonia 38 umol/L (16-60) 07/26/23 12:23 C-Reactive Protein 195.9 mg/L (0.0-4.9) H 07/29/23 00:51 NT-Pro-B Natriuret Pep 1215 pg/mL (0-450) H 07/25/23 04:28 Total Protein 7.1 g/dL (6.6-8.7) 07/28/23 04:44 Albumin 2.8 g/dL (3.5-5.2) L 07/28/23 04:44 Globulin 4.3 g/dL (1.3-4.6) 07/28/23 04:44 Lipase 37 U/L (13-60) 07/23/23 09:38 Vitamin B12 1521 pg/mL (232-1245) H 07/29/23 00:51 Vitamin B12 Cancelled 07/29/23 00:51 Procalcitonin 1.15 ng/mL (0-0.5) H 07/29/23 00:51 TSH 2.13 uIU/mL (0.27-4.20) 07/29/23 00:51 Urine Color Yellow (Yellow) 07/25/23 23:25 Urine Appearance Hazy (CLEAR) A 07/25/23 23:25 Urine pH 5 (5-7) 07/25/23 23:25 Ur Specific [place] 1.010 (1.005-1.030) 07/25/23 23:25 Urine Protein 1+ (Negative) H 07/25/23 23:25 Urine Glucose (UA) Norm (Normal) 07/25/23 23:25 Urine Ketones Negative (Negative) 07/25/23 23: Urine Blood 3+ (Negative) H 07/25/23 23: Urine Nitrate Negative (Negative) 07/25/23 23: Urine Bilirubin Neg (Negative) 07/25/23 23:25 Urine Urobilinogen 1 mg/dL (Negative) H 07/25/23 23:25 Ur Leukocyte Esterase Trace (Negative) H 07/25/23 23:25 Urine RBC 25-40 /hpf (0-2) H 07/25/23 23:25 Urine WBC 25-40 /hpf (0-5) H 07/25/23 23:25 Ur Squamous Epith Cells 0-4 /hpf (0-5) H 07/25/23 23:25 Amorphous Sediment 1+ /hpf 07/25/23 23:25 Urine Bacteria 1+ /hpf (NONE) H 07/25/23 23:25 Fine Granular Casts 0-4 /lpf H 07/25/23 23:25 Coarse Granular Casts 5-10 /lpf H 07/25/23 23:25 Urine Mucus 1+ /hpf 07/25/23 23:25 Fluid Crystals Sent to path 07/29/23 00:15 Synovial Color Other (PALE YELLOW) 07/29/23 00:15 Synovial Appearance Cloudy (CLEAR) 07/29/23 00:15 Synovial WBC 152194 /uL (0-150) H 07/29/23 00:15 Synovial RBC 101 10^3/uL (0-0) H 07/29/23 00:15 Synovial Mononuclear 56.336 10^3/uL 07/29/23 00:15 Synov Polynuclear WBCs 262.007 10^3/uL 07/29/23 00:15 Synovial Other Cells Not Reportable 07/29/23 00:15 Synovial Polynuclear % 82.400 % 07/29/23 00:15 Synovial Mononuclear % 17.600 % 07/29/23 00:15 Synovial Glucose 3 mg/dL 07/29/23 00:15 Synovial Total Protein 5.0 g/dL 07/29/23 00:15 Vancomycin Trough 22.5 ug/mL (10-15) H 07/26/23 02:16 Hepatitis A IgM Ab Non-reactive (Nonreactive) 07/23/23 09:38 Hep Bs Antigen Non-reactive (Nonreactive) 07/23/23 09:38 Hep B Core IgM Ab Non-reactive (Nonreactive) 07/23/23 09:38 Hepatitis C Antibody Non-reactive (Nonreactive) 07/23/23 09:38 Influenza Type A Ag negative (Negative) 07/23/23 23:25 Influenza Type B Ag negative (Negative) 07/23/23 23:25 SARS-CoV-2 Ag (Rapid) negative (Negative) 07/23/23 10:46 MRSA (PCR) Not detected (NOT DETECTED) 07/23/23 06:25 Path Cons w/Slide Yes 07/29/23 00:15 Radiology Impressions Venous Duplex 07/22/23 22:11 IMPRESSION: No evidence of deep vein thrombosis in the left lower extremity. Knee X-Ray 07/22/23 22:22 IMPRESSION: 1. Semi constrained total left knee arthroplasty without evidence of hardware failure or loosening. 2. Trace joint effusion. 3. No acute fracture. Gallbladder Ultrasound 07/23/23 10:18 IMPRESSION: Cholelithiasis without sonographic evidence of acute cholecystitis. Chest X-Ray 07/25/23 11:01 IMPRESSION: Mild cardiomegaly and mild pulmonary edema. Head CT 07/25/23 13:59 IMPRESSION: No acute intracranial abnormality. Hip/Pelvis X-Ray 07/27/23 04:33 IMPRESSION: Negative for acute osseous abnormality. Hip CT 07/28/23 11:16 IMPRESSION: 1. Soft tissue contusion without evidence of fracture or subluxation of the left hip. Lower Extremity CT 07/28/23 11:17 IMPRESSION: 1. Total left knee arthroplasty with moderate-large joint effusion and foci of air in the suprapatellar bursa concerning for joint infection. Correlation with joint fluid analysis and orthopedic evaluation is recommended. No evidence of periprosthetic fracture. ADDENDUM: 07/28/23 [id number] Correction: Semi-constrained total left knee arthroplasty and patellar resurfacing without evidence of hardware loosening or periprosthetic fracture. The findings were verbally communicated by telephone with ROBLES Yip at 11:03 PM [employer]BACK [employer]MER on 07/28/2023. The findings were acknowledged and understood. Recent Clincial Data Last Vital Signs Temp 97.8 F 07/29/23 07:20 Pulse 75 07/29/23 07:20 Resp 14 07/29/23 09:10 BP 134/63 07/29/23 07:20 Pulse Ox 93 07/29/23 09:10 O2 Del Method Room Air 07/29/23 07:20 O2 Flow Rate 3 07/25/23 08:00 Vital Signs Temp Pulse Resp BP Pulse Ox O2 Del Method 07/29/23 09:10 14 93 07/29/23 07:55 14 93 07/29/23 07:20 97.8 F 75 14 134/63 93 Room Air 07/29/23 04:00 98.4 F 70 17 130/52 92 Intake & Output/Weight 07/27/23 07/28/23 07/29/23 07/30/23 06:59 06:59 06:59 06:59 Intake Total 1460 / 1460 690 / 690 660 / 660 Output Total 1800 / 1800 3325 / 3325 2925 / 2925 Balance -340 / -340 -2635 / -2635 -2265 / -2265 Weight 131.995 kg 125.055 kg 124.103 kg Vitals Last Vital Signs Temp 97.8 F 07/29/23 07:20 Pulse 75 07/29/23 07:20 Resp 14 07/29/23 09:10 BP 134/63 07/29/23 07:20 Pulse Ox 93 07/29/23 09:10 O2 Del Method Room Air 07/29/23 07:20 O2 Flow Rate 3 07/25/23 08:00 TS Medications Medications Discontinued Medications Acetaminophen (Acetaminophen 325 Mg Tablet) 650 mg PO Q6H PRN PRN Reason: Mild/Mod Pain Or Temp >/= 101 Hydrocodone Bitart/Acetaminophen (Hydrocodone-Acetaminophen 5-325 Mg Tablet) 1 tab PO Q4H PRN PRN Reason: MODERATE PAIN Last Admin: 07/29/23 00:50 Dose: 1 tab Albuterol Sulfate (Albuterol 2.5 Mg/3 Ml Neb) 2.5 mg INHALATION Q6H.RESP PRN PRN Reason: WHEEZING Allopurinol (Allopurinol 100 Mg Tablet) 100 mg PO QAM [facility] Last Admin: 07/24/23 05:03 Dose: 100 mg Allopurinol (Allopurinol 100 Mg Tablet) 100 mg PO DAILY [facility] Last Admin: 07/28/23 09:52 Dose: 100 mg Amlodipine Besylate (Amlodipine 5 Mg Tablet) 5 mg PO QAM [facility] Last Admin: 07/24/23 05:03 Dose: 5 mg Amlodipine Besylate (Amlodipine 5 Mg Tablet) 5 mg PO DAILY [facility] Last Admin: 07/28/23 09:52 Dose: 5 mg Atorvastatin Calcium (Atorvastatin 40 Mg Tablet) 80 mg PO BEDTIME [facility] Last Admin: 07/28/23 21:06 Dose: 80 mg Cetirizine HCl (Cetirizine 10 Mg Tablet) 10 mg PO DAILY [facility] Last Admin: 07/28/23 09:52 Dose: 10 mg Enoxaparin Sodium (Enoxaparin 40 Mg/0.4 Ml Syringe) 40 mg SUBCUT Q24H [facility] Last Admin: 07/28/23 09:51 Dose: 40 mg Furosemide (Furosemide 10 Mg/Ml Sdv 4ml) 40 mg IVP ONCE ONE Stop: 07/25/23 11:02 Last Admin: 07/25/23 12:24 Dose: 40 mg Furosemide (Furosemide 10 Mg/Ml Sdv 2ml) 20 mg IVP ONCE ONE Stop: 07/26/23 11:05 Last Admin: 07/26/23 11:48 Dose: 20 mg Furosemide (Furosemide 10 Mg/Ml Sdv 10ml) 60 mg IVP Q12H [facility] Last Admin: 07/28/23 11:30 Dose: 60 mg Furosemide (Furosemide 40 Mg Tablet) 60 mg PO Q12H [facility] Last Admin: 07/28/23 22:36 Dose: 60 mg Gabapentin (Gabapentin 300 Mg Capsule) 300 mg PO BEDTIME [facility] Last Admin: 07/28/23 21:06 Dose: 300 mg Hydralazine HCl (Hydralazine 10 Mg Tablet) 10 mg PO TID [facility] Last Admin: 07/28/23 21:06 Dose: 10 mg Clindamycin HCl/Dextrose (Cleocin) 600 mg in 50 mls @ 100 mls/hr IV ONCE ONE; Protocol Stop: 07/23/23 00:43 Last Infusion: 07/23/23 01:18 Dose: Infused Vancomycin HCl / Sodium (Chloride) 250 mls @ 0 mls/hr [id number] PROTOCOL [facility]; Protocol Ceftriaxone Sodium 1,000 mg/ (Sodium Chloride) 50 mls @ 100 mls/hr IV Q24H [facility]; Protocol Last Infusion: 07/26/23 00:37 Dose: Infused Vancomycin/PEG/NADA/Lysine/Water (Vancocin) 2,000 mg in 400 mls @ 200 mls/hr IV Q24H [facility] Last Admin: 07/28/23 02:05 Dose: Not Given Sodium Chloride (Sodium Chloride 0.9%) 1,000 mls @ 100 mls/hr IV .Q10H [facility] Last Infusion: 07/25/23 05:10 Dose: Infused Clindamycin HCl/Dextrose (Cleocin) 600 mg in 50 mls @ 100 mls/hr IV Q8H [facility]; Protocol Stop: 07/26/23 09:00 Last Infusion: 07/26/23 05:33 Dose: Infused Vancomycin/PEG/NADA/Lysine/Water (Vancocin) 1,750 mg in 350 mls @ 175 mls/hr IV Q24H [facility] Last Admin: 07/28/23 20:17 Dose: Not Given Piperacillin Sod/Tazobactam (Sod 3.375 gm/ Sodium Chloride) 50 mls @ 12.5 mls/hr IV Q8H [facility]; Protocol Last Admin: 07/28/23 20:17 Dose: Not Given Ceftriaxone Sodium 1,000 mg/ (Sodium Chloride) 50 mls @ 100 mls/hr IV DAILY [facility]; Protocol Piperacillin Sod/Tazobactam (Sod 3.375 gm/ Sodium Chloride) 50 mls @ 12.5 mls/hr IV Q8H [facility] Last Admin: 07/29/23 03:16 Dose: 12.5 mls/hr Vancomycin/PEG/NADA/Lysine/Water (Vancocin) 1,500 mg in 300 mls @ 200 mls/hr IV Q24H [facility] Last Infusion: 07/29/23 03:15 Dose: Infused Levofloxacin (Levofloxacin 750 Mg Tablet) 750 mg PO DAILY@0600 [facility]; Protocol Last Admin: 07/28/23 11:31 Dose: 750 mg Metoprolol Tartrate (Metoprolol Tartrate 25 Mg Tablet) 12.5 mg PO BID@0900,2100 [facility] Last Admin: 07/28/23 21:06 Dose: 12.5 mg Morphine Sulfate (Morphine 4 Mg/Ml Sdv 1 Ml) 2 mg IVP Q4H PRN PRN Reason: SEVERE PAIN Last Admin: 07/29/23 07:55 Dose: 2 mg Ondansetron HCl (Ondansetron 2 Mg/Ml Sdv 2 Ml) 4 mg IVP Q8H PRN PRN Reason: vomiting, or N/V if npo Pantoprazole Sodium (Pantoprazole Dr 40 Mg Tablet) 40 mg PO DAILY [facility] Last Admin: 07/28/23 09:52 Dose: 40 mg Allergies No Known Drug Allergies Allergy (Verified 07/23/23 08:42) Unknown Home Medications amlodipine 5 mg tablet 5 mg PO QAM 05/01/22 [History Confirmed 07/23/23] celecoxib 200 mg capsule 200 mg PO BID 05/01/22 [History Confirmed 07/23/23] cetirizine 10 mg tablet 10 mg PO DAILY 05/01/22 [History Confirmed 07/23/23] gabapentin 300 mg capsule 300 mg PO BEDTIME 05/01/22 [History Confirmed 07/23/23] rosuvastatin 20 mg tablet 20 mg PO BEDTIME 05/01/22 [History Confirmed 07/23/23] allopurinol 100 mg tablet 100 mg PO QAM 07/23/23 [History Confirmed 07/23/23] azithromycin 250 mg tablet See Rx Instructions .Route .COMPLEX 07/23/23 [History Confirmed 07/23/23] fluticasone propionate 50 mcg/actuation nasal spray,suspension 2 spray intranasal DAILY 07/23/23 [History Confirmed 07/23/23] hydroxyzine HCl 25 mg tablet 25 mg PO QID PRN Itching 07/23/23 [History Confirmed 07/23/23] methylprednisolone 4 mg tablets in a dose pack See Rx Instructions .Route .COMPLEX 07/23/23 [History Confirmed 07/23/23] tadalafil 20 mg tablet See Rx Instructions .Route .COMPLEX 07/23/23 [History Confirmed 07/23/23] triamcinolone acetonide 0.1 % topical ointment See Rx Instructions .Route .COMPLEX 07/23/23 [History Confirmed 07/23/23] Discharge Plan Discharge Patient Disposition: Xfer Other Condition: Stable Prescriptions: No Action rosuvastatin 20 mg tablet 20 mg PO BEDTIME gabapentin 300 mg capsule 300 mg PO BEDTIME amlodipine 5 mg tablet 5 mg PO QAM celecoxib 200 mg capsule 200 mg PO BID cetirizine 10 mg tablet 10 mg PO DAILY azithromycin 250 mg tablet See Rx Instructions .ROUTE .COMPLEX Rx Instructions: TAKE 2 TABLETS PO TODAY THEN 1 TABLET PO DAILY FOR THE NEXT 4 DAYS allopurinol 100 mg tablet 100 mg PO QAM triamcinolone acetonide 0.1 % ointment See Rx Instructions .ROUTE .COMPLEX Rx Instructions: APPLY TWICE DAILY TO AFFECTED AREA ON ARMS AND LEGS NO MORE THAN 2 WEEKS PER MONTH hydroxyzine HCl 25 mg tablet 25 mg PO QID PRN (Reason: Itching) methylprednisolone 4 mg tablets,dose pack See Rx Instructions .ROUTE .COMPLEX Rx Instructions: TAKE DIRECTED ON PACKAGE fluticasone propionate 50 mcg/actuation spray,suspension 2 spray INTRANASAL DAILY tadalafil 20 mg tablet See Rx Instructions .ROUTE .COMPLEX Rx Instructions: TAKE 1 TABLET BY MOUTH 1 HOUR PRIOR TO SEXUAL ACTIVITY NEEDED MAX 1 TABLET EVERY 48 HRS. Discharge Orders: Discharge Order (Routine); Ordered 07/29/23 Ordered By: Robles Robbins Referrals: Keeley Avelar MD [Referring] - Vamshi Vázquez FNP [Primary Care Provider] - Patient Instructions: Opioid Safety Transfer Attestations Time Spent in Transfer Care: greater than 30 min Quality Metrics Clinical Quality Measures [ No reported AMI, CVA or VTE this stay] Coding Level of Care Code Acute Code for Chg Fwd Diagnoses Infection of prosthetic left knee joint T84.54XA
== END 2023-07-29 08:10 | disposition short-term general hospital (02) | DRG 559 ==
LOC: ER 07-23 01:32 → MEDSURG 07-23 02:05
PROVIDERS: Family Medicine; Internal Medicine; Student in an Organized Health Care Education/Training Program; Admitting Provider Student in an Organized Health Care Education/Training Program; Emergency Provider Internal Medicine; PCP Nurse Practitioner Family; Visit Provider Internal Medicine
DX: T84.54XA Infection and inflammatory reaction due to internal left knee prosthesis, initial encounter (principal); I50.31 Acute diastolic (congestive) heart failure; L03.116 Cellulitis of left lower limb; R78.81 Bacteremia; I13.0 Hypertensive heart and chronic kidney disease with heart failure and stage 1 through stage 4 chronic kidney disease, or unspecified chronic kidney disease; F05 Delirium due to known physiological condition; N39.0 Urinary tract infection, site not specified; N17.9 Acute kidney failure, unspecified; Y83.1 Surgical operation with implant of artificial internal device as the cause of abnormal reaction of the patient, or of later complication, without mention of misadventure at the time of the procedure; B95.1 Streptococcus, group B, as the cause of diseases classified elsewhere; M25.462 Effusion, left knee; N18.9 Chronic kidney disease, unspecified; Z87.891 Personal history of nicotine dependence; M16.12 Unilateral primary osteoarthritis, left hip; Z96.652 Presence of left artificial knee joint; R09.02 Hypoxemia; R74.01 Elevation of levels of liver transaminase levels; E78.5 Hyperlipidemia, unspecified
CPT/HCPCS: 36415; 36416; 51702; 70450; 71045; 73502; 73562; 73700; 76705; 80048; 80053; 80074; 80202; 80503; 81001; 82140; 82607; 82945; 82962; 83036; 83605; 83690; 83880; 84145; 84157; 84443; 85025; 85610; 85651; 86140; 87040; 87070; 87075; 87077; 87086; 87102; 87186; 87205; 87206; 87426; 87641; 87804; 89050; 93306; 93971; 96365; 96372; 99285; C1751; J0696; J1650; J1940; J2270; J2543; J3370; J3372; J3490; J7030

== ENCOUNTER → 2024-05-05 13:12 | Outpatient (BNVA) | payer MEDICARE, OTHER, SELFPAY | PROVIDERS: PCP Nurse Practitioner Family; Visit Provider Nurse Practitioner Family | DX: L57.0 Actinic keratosis (principal); L57.8 Other skin changes due to chronic exposure to nonionizing radiation; L56.5 Disseminated superficial actinic porokeratosis (DSAP); F42.4 Excoriation (skin-picking) disorder; L28.1 Prurigo nodularis; L82.1 Other seborrheic keratosis; L73.8 Other specified follicular disorders | CPT/HCPCS: 17000; 99214 ==

== ENCOUNTER → 2025-01-17 15:56 | Outpatient (BNVA) | payer MEDICARE, OTHER, SELFPAY | PROVIDERS: PCP Family Medicine; Visit Provider Family Medicine | DX: I10 Essential (primary) hypertension (principal); E78.5 Hyperlipidemia, unspecified; E78.2 Mixed hyperlipidemia; D69.6 Thrombocytopenia, unspecified; R73.03 Prediabetes | CPT/HCPCS: 80053; 80061; 83036; 84439; 84443; 85025 ==

== ENCOUNTER 2025-05-11 14:50 | Outpatient (RCR) | payer MEDICARE, OTHER, SELFPAY | END 2025-05-12 23:59 | disposition home or self-care (01) | LOC: MPT 14:50 | PROVIDERS: PCP Family Medicine; Visit Provider Family Medicine | DX: M48.061 Spinal stenosis, lumbar region without neurogenic claudication (principal) | CPT/HCPCS: 97110; 97140; 97162 ==

== ENCOUNTER → 2025-05-25 13:46 | Outpatient (BNVA) | payer MEDICARE, OTHER, SELFPAY | PROVIDERS: PCP Family Medicine; Visit Provider Nurse Practitioner Family | DX: L57.8 Other skin changes due to chronic exposure to nonionizing radiation (principal); L85.3 Xerosis cutis; S00.30XA Unspecified superficial injury of nose, initial encounter; X58.XXXA Exposure to other specified factors, initial encounter; L72.0 Epidermal cyst; L73.8 Other specified follicular disorders; L82.1 Other seborrheic keratosis; L57.0 Actinic keratosis | CPT/HCPCS: 17000; 99213 ==

== ENCOUNTER 2025-06-07 11:58 | Outpatient (RCR) | payer MEDICARE, OTHER, SELFPAY | END 2025-06-11 23:59 | disposition home or self-care (01) | LOC: MPT 11:58 | PROVIDERS: PCP Family Medicine; Visit Provider Family Medicine | DX: M48.061 Spinal stenosis, lumbar region without neurogenic claudication (principal) | CPT/HCPCS: 97110; 97140 ==

== ENCOUNTER 2025-06-14 14:52 | Outpatient (RCR) | payer MEDICARE, OTHER, SELFPAY | END 2025-07-12 23:59 | disposition home or self-care (01) | LOC: MPT 14:52 | PROVIDERS: PCP Family Medicine; Visit Provider Family Medicine | DX: M48.061 Spinal stenosis, lumbar region without neurogenic claudication (principal) | CPT/HCPCS: 97110 ==